=== PATIENT | female | born 1960 | race Caucasian/White ===

== ENCOUNTER 2018-10-10 08:21 | Day surgery (SDC) | payer OTHER ==
[2018-10-10] MEDS ORDERED: EPINEPHRINE/PF 1 MG/ML AMP ONE (09:19)
[2018-10-10] MEDS ORDERED: NS 0.9% VIAL 10 ML ONE (09:19)
[2018-10-10] MEDS ORDERED: DUOVISC 1 KIT OPTH ONE (09:20)
[2018-10-10] MEDS ORDERED: MOXIFLOXACIN HCL 10 DROPS/ML **OR USE OPTH ONE (09:20)
[2018-10-10] MEDS ORDERED: BALANCED SALT IRRIG PLAIN 500 ML BTL IRR ONE (09:20)
[2018-10-10] MEDS: PHENYLEPHRINE 10% OPTH 5ML ONE ×3 (09:40→09:55)
[2018-10-10] MEDS ORDERED: TETRACAINE HCL 0.5% 2ML OPTH ONE (09:40)
[2018-10-10] MEDS ORDERED: BUPIVACAINE 0.25% PF 10 ML VIAL ONE (09:40)
[2018-10-10] MEDS: CYCLOPENTOLATE 1% OPTH 2 ML ONE ×3 (09:40→09:55)
[2018-10-10] MEDS ORDERED: NA CHLORIDE 0.9% 500 ML ONE (09:41)
[2018-10-10] MEDS ORDERED: LIDOCAINE 1% MPF 30 ML VIAL ONE (09:42)
[2018-10-10] MEDS ORDERED: LIDOCAINE 2% MPF 5 ML VIAL ONE (09:44)
[2018-10-10] MEDS ORDERED: PROPOFOL 200 MG/20 ML VIAL IV ONE (10:33)
[2018-10-10] MEDS ORDERED: TRYPAN BLUE 0.5 ML SYR OPTH ONE (10:53)
--- NOTE | 2018-10-10 11:19 | P.BOP ---
Preoperative diagnosis: Nuclear sclerotic and posterior subcapsular cataract OD Postoperative diagnosis: Same Primary procedure: Phacoemulsification with IOL OD Estimated blood loss: None Anesthesia: Local (Subtenon's infusion with anesthesia for cataract surgery) Complications: None Implants: SN60WF +21.5 Transferred to: Other (Day surgery) Condition: Good
--- NOTE | 2018-10-10 22:09 | OP ---
Date of Procedure: 10/10/2018 Surgeon: Genna Quintanilla MD Anesthesiologist: Naeem Leal CRNA and Jose Ramon Vargas MD. Preoperative Diagnoses: Nuclear sclerotic and posterior subcapsular cataract, right eye. Operation Performed: Phacoemulsification with intraocular lens implant, right eye. Anesthesia: Per cataract surgery. Complications: None. Description Of Procedure: In day surgery, the patient was prepped with Betadine and draped. A conju nctival incision was made in the inferior nasal quadrant with Carley scissors. A sub-Tenon block c onsisting of a 1:1 mixture of 2% Xylocaine and 0.25% bupivacaine was placed through the conjunctival incision with a blunt cannula. A Honan balloon was placed over the eye and the patient was transferr ed to the operating room. In the operating room the patient was prepped and draped in the usual sterile fashion for ophthalmic surgery. A lid speculum was placed in the right eye. Two paracentesis sites were made superiorly an d inferiorly in the limbal cornea. Viscoat was placed in the anterior chamber and a crescent blade w as used to make a corneal groove and tunnel, and a keratome was used to enter the anterior chamber. Provisc was placed in the anterior chamber and a 360 degree capsulotomy was performed with a cystitom e. The lens was hydrodissected with BSS and rotated freely. The lens was removed with a stop and ch op technique. 16.55 phaco CDE was used to remove the lens. Residual cortex was removed with the irr igation and aspiration. Provisc was placed in the capsular bag. An SN60WF +21.5 lens was placed in the capsular bag without complications. Irrigation and aspiration were used to remove residual visco elastic. The paracentesis sites were hydrated with BSS. The wound and paracentesis sites were inspe cted and found to be watertight. Vigamox 0.07 cc was placed intracamerally at the end of the procedu re. The eye was irrigated with balanced salt solution. The eye was patched with a soft cotton patch and Umro metal shield. The patient was returned to day surgery in good condition. Comments: Extra Viscoat was used. There is a slight abrasion to the lateral canthal area with the d rape scissors. Discharge Instructions: Ms. Medina is discharged to home in good condition and is to follow up with Dr. Quintanilla in the morning. KHADAR/JAMES Voice ID: [id number] Report ID: [id number]
== END 2018-10-10 11:46 | disposition home or self-care (01) ==
LOC: OR 08:21
PROVIDERS: ATTEND Ophthalmology Retina Specialist
PROC: 08RJ3JZ Replacement of Right Lens with Synthetic Substitute, Percutaneous Approach (ICD-10-PCS; principal; 2018-10-10 10:00)
DX: H25.11 Age-related nuclear cataract, right eye (principal); H25.041 Posterior subcapsular polar age-related cataract, right eye; E11.9 Type 2 diabetes mellitus without complications; I10 Essential (primary) hypertension; Z79.82 Long term (current) use of aspirin; Z88.0 Allergy status to penicillin; Z91.048 Other nonmedicinal substance allergy status; Z83.518 Family history of other specified eye disorder; Z83.3 Family history of diabetes mellitus; Z82.49 Family history of ischemic heart disease and other diseases of the circulatory system
CPT/HCPCS: 82962; J0171; J2704

== ENCOUNTER 2022-08-20 09:46 | Emergency (ER) | payer BC ==
--- OUTSIDE RECORDS SUMMARY | 2022-08-20 09:49 | XMS REPORT | Continuity of Care Document ---
:1960 Author Organization [facility] t Address [address] [place] [address] Care Team Providers Name Role Phone Karla Mir Primary Care Physician UNKNOWN, ATTENDING Attending Clinician Unavailable MARIO FOOTE Attending Clinician Unavailable Therapy, Pcp Covid Infusion Attending Clinician Unavailable Mario Foote MD Attending Clinician Braden RNFrancisca Attending Clinician Unavailable Only, Ang Db Test Attending Clinician Unavailable EbLawrence Jennings Attending Clinician LAWRENCE SANTA Attending Clinician Unavailable Doctor Unassigned, [place] Attending Clinician Unavailable Payers Payer Name Policy Type Policy Number Effective Date Expiration Date Joellen larsen [facility] [id number] 2019 00:00:00 [employer] II [id number] 2017 00:00:00 Problems Condition Condition Condition Status Onset Resolution Last Treating Co mments Source Name Details Category Date Date Treatment Clinician Date Essential Essential Disease Active Uni vers hypertensi hypertensi 8-12 it y [place], [place] 00 [place] Type 2 Type 2 Disease Active Univers diabetes diabetes 8-12 ity of mellitus mellitus 00:00: [place] without without 00 Medical complicati complicati Br anch on, on, without without long-term long-term current current use of use of insulin insulin Allergies, Adverse Reactions, Alerts Allergy Allergy Status Severity Reaction(s) Onset Inactive Treating Comm ents Source Name Type Date Date Clinician PENICILL Drug Active Rash 2013-07 Univers INS Class 0-03 ity of 00:00: [place] 00 Medical Branch Penicill Propensi Active Swelling 2013-07 Univ ers ins ty to 0-03 ity of adverse 00:00: [place] reaction 00 Medical s Branch Social History Social Habit Start Date Stop Date Quantity Comments Source Exposure to Yes University of SARS-CoV-[address] [facility] (event) [place] Alcohol intake 2018-02-13 2018-02-13 University of 00:00:00 00:00:00 [facility] [place] [facility] Tobacco use and 2014-04-06 2014-04-06 Never used Universit y of exposure 00:00:00 00:00:00 [facility] [place] [facility] Tobacco Comment 2014-04-06 2014-04-06 quit 20 years Univer sity of 00:00:00 00:00:00 ago. [facility] [place] [facility] Sex Assigned At [birth year] Universit y of 00:00:00 00:00:00 [facility] [place] [facility] Smoking Status Start Date Stop Date Source Former smoker 2014-04-06 00:00:00 2014-04-06 00:00:00 Universi ty of [facility] [place] [facility] Medications Ordered Filled Start Stop Current Ordering Indication Dosage Frequency Signature Comments Components Source Medication Medication Date Date Medication? Clinician (SIG) Name Name casirivimab 2020-07- No [id number] 1200mg Univers -imdevimab 04-05 ity of (REGEN-COV 15:30: 14:15 [place] (EUA)) 00 :00 Medical injection Branch 1,200 mg casirivimab 2020-07- No [id number] 1200mg 1,200 mg, Univers -imdevimab 04-05 Subcutaneo it y of (REGEN-COV 15:30: 14:15 [place], ONCE, [place] (EUA[place] 00 :00 1 dose, On Medical injection Sat Branch 1,200 mg 04/05/21 at 1030, Routine cephALEXin Yes [id number] 1 tab 2x/d Univers 500 mg 8-12 ity of tablet 00:00: [place] 00 Medical Branch metFORMIN 2013-07 Yes 1000mg Take 1,000 Univers (GLUCOPHAGE 0-03 mg by ity of ) 1,000 mg 13:08: mouth 2 [place] tablet 11 (two) Medical times [place] daily with meals. levothyroxi 2013-07 Yes 75ug Take 75 Uni vers ne 0-03 mcg by ity of (SYNTHROID) 13:08: mouth [place] 75 mcg 10 every Medical tablet morning. Branch atenolol-ch 2013-07 Yes 1{tbl} Take 1 Tab Univers lorthalidon 0-03 by mouth ity of e 13:08: daily. [place] (TENORETIC) 10 Medical 50-25 mg Branch per tablet losartan 2013-07 Yes 50mg Take 50 mg Uni vers (COZAAR) 50 0-03 by mouth ity of mg tablet 13:08: daily. [address] triamcinolo 2013-07 Yes [id number] Apply to [facility] [place] [facility] ne 0-03 area(s) 2 ity of acetonide 00:00: (two) [place] (TRIDERM) 00 times Medical 0.1 % cream daily. Branch Vital Signs Vital Name Observation Time Observation Value Comments Source Systolic blood 2021-04-05 14:40:00 98 mm[Hg] Univer sity of pressure [facility] [place] [facility] Diastolic blood 2021-04-05 14:40:00 62 mm[Hg] Unive rsity of [facility] Heart rate 2021-04-05 14:40:00 61 /min [facility] Body temperature 2021-04-05 14:40:00 36.33 Angela [facility] saturation in 2021-04-05 14:40:00 94 /min room air [facility] blood by [facility] Pulse oximetry [place] Body height 2021-04-05 14:04:00 160 cm [facility] Body weight 2021-04-05 14:04:00 95.255 kg [facility] BMI 2021-04-05 14:04:00 37.20 kg/m2 [facility] Procedures This patient has no known procedures. Encounters Start End Encounter Admission Attending Care Care Encounter Source Date/Time Date/Time Type Type Clinicians Facility Department ID 2021-04-11 2021-04-11 Outpatient R UNKNOWN, [facility] [id number] [facility] [place] [facility] 10:15:00 10:15:00 ATTENDING itgabriela [facility] 2021-04-05 2021-04-05 Outpatient R RAMON [facility] [id number] Univers 10:00:00 10:00:00 MARIO burrell [facility] 2021-04-05 2021-04-05 Nurse Therapy, Pcp Covid Infusion [facility] [id number] Univers 08:56:13 09:56:13 Visit FooteMario saldivar A PRIMARY [id number] ity of [id number] [id number] [facility] 042 [place] 2021-04-02 2021-04-02 Telephone JED Feliciano [id number] Univers 00:00:00 00:00:00 Francisca PALMA [id number] it y of HOSPITAL [id number] [place] [id number] [facility] 019 [place] 2021-04-01 2021-04-01 Laboratory Only, Ang Db Test [facility] 1.2.8 [id number] [id number] Univers 13:30:59 13:45:17 Only [facility] [id number] ity of [place] [id number] [place] as Saroj?Blea [id number] [address] Medical Office Building 2021-04-01 2021-04-01 Outpatient R KEN [facility] [id number] Univers 13:15:00 13:15:00 LAWRENCE burrell [facility] 2021-04-01 2021-04-01 Letter Doctor JED [id number] Univers 00:00:00 00:00:00 (Out) Unassigned, LOUIE [id number] ity of [place] HOSPITAL [id number] [place] as [phone] [facility] 044 [place] 2021-04-01 2021-04-01 Orders Doctor ADKINS [id number] Univers 00:00:00 00:00:00 Only UnassignedLOUIE [id number] ity of [place]ja HOSPITAL [id number] [place] as [id number] [facility] 009 Branch Results This patient has no known results.
--- NOTE | 2022-08-20 10:56 | RAD REPORT ---
EXAM DESCRIPTION: RAD - Knee Left 3 View - 08/20/2022 10:34 am CLINICAL HISTORY: knee pain COMPARISON: No comparisons FINDINGS: Mild medial compartment space narrowing. No fracture, dislocation or joint effusion.
--- NOTE | 2022-08-20 11:22 | ER ---
Nurse's Notes [facility] Name: Kristin Medina Age: 62 yrs Sex: Female : 1960 Arrival Date: 08/20/2022 Time: 09:48 Bed IW4 Private MD: Hudson Fernandez V Diagnosis: Knee Pain;Cellulitis of the Left Lower Extremity Presentation: 08/20 10:07 Chief complaint: Patient states: Woke 2 days ago with left knee swelling and pain, jl7 denies trauma, Dr. Fernandez sent for eval. Coronavirus screen: At this time, the client does not indicate any symptoms associated with coronavirus-19. Ebola Screen: No symptoms or risks identified at this time. Initial Sepsis Screen: Does the patient meet any 2 criteria? No. Patient's initial sepsis screen is negative. Does the patient have a suspected source of infection? No. Patient's initial sepsis screen is negative. Risk Assessment: Do you want to hurt yourself or someone else? Patient reports no desire to harm self or others. Onset of symptoms was August 18, 2022. 10:07 Method Of Arrival: Ambulatory jl7 10:07 Acuity: CANDELARIA 3 jl7 Triage Assessment: 10:08 General: Appears in no apparent distress. uncomfortable, Behavior is calm, cooperative, jl7 appropriate for age. Pain: Complains of pain in left knee Pain currently is 5 out of 10 on a pain scale. Historical: - Allergies: 10:08 PENICILLINS; jl7 - Home Meds: 10:08 levothyroxine oral [Active]; metformin Oral [Active]; Ozempic subcutaneous [Active]; jl7 Atenolol Oral [Active]; losartan oral [Active]; atorvastatin oral [Active]; - PMHx: 10:08 Anxiety; Hypothyroidism; Hypertensive disorder; Diabetes mellitus; jl7 - PSHx: 10:08 section; Cholecystectomy; jl7 - Immunization history:: Client reports having NOT received the Covid vaccine. - Social history:: Smoking status: Patient denies any tobacco usage or history of. Assessment: 10:17 Reassessment: PRAMOD Washburn in triage assessing pt. jl7 Vital Signs: 10:07 BP 114 / 82; Pulse 92; Resp 17; Temp 98.7; Pulse Ox 95% on R/A; Weight 90.26 kg; Height jl7 5 ft. 3 in. (160.02 cm); Pain 5/10; 10:07 Body Mass Index 35.25 (90.26 kg, 160.02 cm) jl7 ED Course: 09:48 Patient arrived in ED. rg4 09:49 Hudson Fernandez MD is Private Physician. rg4 10:08 Triage completed. jl7 10:08 Arm band placed on right wrist. Patient placed in waiting room, Patient notified of jl7 wait time. 10:21 Wu Dang PA is PHCP. [facility] 10:21 Karla Foote MD is Attending Physician. jmm 10:35 Knee Left 3 View XRAY In Process Unspecified. EDMS 11:21 Reggie Fritz MD is Referral Physician. [facility] 11:30 Zhanna Toribio, ASHLEY is Primary Nurse. jl7 11:30 Patient has correct armband on for positive identification. jl7 11:30 No provider procedures requiring assistance completed. Patient did not have IV access jl7 during this emergency room visit. Administered Medications: No medications were administered Outcome: 11:21 Discharge ordered by . jmm 11:30 Discharged to home ambulatory. jl7 11:30 Condition: stable 11:30 Discharge instructions given to patient, Instructed on discharge instructions, follow up and referral plans. medication usage, Demonstrated understanding of instructions, follow-up care, medications, Prescriptions given X 2. 11:31 Patient left the ED. jl7 Signatures: Dispatcher [employer] EDMS Wu Dang PA PA jmm Garcia, Rubi rg4 Zhanna Toribio, RN RN jl7
--- NOTE | 2022-08-20 11:22 | EDPHYS ---
Physician Documentation [facility] Name: Kristin Medina Age: 62 yrs Sex: Female : 1960 Arrival Date: 08/20/2022 Time: 09:48 Bed IW4 Private MD: Hudson Fernandez V ED Physician Karla Foote HPI: 08/20 10:21 This 62 yrs old Female presents to ER via Ambulatory with complaints of Sent By [facility]- [facility] Sivan for Septic Joint. 10:21 The patient presents with pain. Onset: The symptoms/episode began/occurred gradually, 2 jmm day(s) ago. This is a 62-year-old female with history of hypothyroidism, hypertension, diabetes mellitus the presents emerged part with complaints of left knee pain and swelling beginning approximately 2 days ago. Patient denies any known injury. States she helped relieve the swelling with ice. Denies fever. Denies any type of penetrating trauma. Historical: - Allergies: 10:08 PENICILLINS; jl7 - Home Meds: 10:08 levothyroxine oral [Active]; metformin Oral [Active]; Ozempic subcutaneous [Active]; jl7 Atenolol Oral [Active]; losartan oral [Active]; atorvastatin oral [Active]; - PMHx: 10:08 Anxiety; Hypothyroidism; Hypertensive disorder; Diabetes mellitus; jl7 - PSHx: 10:08 section; Cholecystectomy; jl7 - Immunization history:: Client reports having NOT received the Covid vaccine. - Social history:: Smoking status: Patient denies any tobacco usage or history of. ROS: 10:21 Constitutional: Negative for fever, chills, and weight loss, Cardiovascular: Negative jmm for chest pain, palpitations, and edema, Respiratory: Negative for shortness of breath, cough, wheezing, and pleuritic chest pain. 10:21 MS/extremity: Positive for pain, swelling. 10:21 All other systems are negative. Exam: 10:21 Constitutional: This is a well developed, well nourished patient who is awake, alert, jmm and in no acute distress. Head/Face: atraumatic. Eyes: EOMI, no conjunctival erythema appreciated ENT: Moist Mucus Membranes Neck: Trachea midline, Supple Chest/axilla: Normal chest wall appearance and motion. Cardiovascular: Regular rate and rhythm. No edema appreciated Respiratory: Normal respirations, no respiratory distress appreciated Abdomen/GI: Non distended Back: Normal ROM 10:21 Musculoskeletal/extremity: Full range of motion appreciated to the left knee.. 10:21 Skin: Erythema noted to the left anterior knee, slightly indurated, focally tender to palpation. 10:21 Neuro: Orientation: is normal, Mentation: is normal, Memory: is normal. 10:21 Psych: Behavior/mood is pleasant, cooperative. Vital Signs: 10:07 BP 114 / 82; Pulse 92; Resp 17; Temp 98.7; Pulse Ox 95% on R/A; Weight 90.26 kg; Height jl7 5 ft. 3 in. (160.02 cm); Pain 5/10; 10:07 Body Mass Index 35.25 (90.26 kg, 160.02 cm) jl7 MDM: 10:21 Patient medically screened. [facility] 11:16 Differential diagnosis: Cellulitis, septic joint, insect bite. Data reviewed: vital [facility] signs, nurses notes. Independent interpretation of the following test(s) in the Emergency Department X-Ray: My interpretation is No fracture appreciated. Care significantly affected by the following chronic conditions: Diabetes. Counseling: I had a detailed discussion with the patient and/or guardian regarding: the historical points, exam findings, and any diagnostic results supporting the discharge/admit diagnosis, radiology results, the need for outpatient follow up, to return to the emergency department if symptoms worsen or persist or if there are any questions or concerns that arise at home. Refusal of service: The patient/guardian displays adequate decision making capability and despite a detailed discussion of alternatives, benefits, risks, and consequences refuses: knee tap. ED course: There is mild erythema swelling to the anterior knee. most likely cellulitis. Patient does have full range of motion, is afebrile, there is no penetrating injury. Patient was given strict return precautions if swelling does increase that she would need to come in for IV antibiotics and had a possible tap of the knee joint. Patient understood and agrees plan of care.. 08/20 10:21 Order name: Knee Left 3 View XRAY; Complete Time: 10:57 [facility] Administered Medications: No medications were administered Disposition Summary: 08/20/22 11:21 Discharge Ordered Location: Home [facility] Condition: Stable [facility] Diagnosis - Knee Pain jmm - Cellulitis of the Left Lower Extremity [facility] Followup: [facility] - With: Reggie Fritz MD - When: 2 - 3 days - Reason: Recheck today's complaints, Continuance of care, Re-evaluation by your physician Discharge Instructions: - Discharge Summary Sheet [facility] - Cellulitis, Adult jm - Acute Knee Pain, Adult [facility] Forms: - Medication Reconciliation Form [facility] - Thank You Letter [facility] - Antibiotic Education [facility] - Prescription Opioid Use [facility] Prescriptions: - Doxycycline Hyclate 100 mg Oral Tablet - take 1 tablet by ORAL route every 12 hours; 20 tablet; Refills: 0, Product [facility] Selection Permitted - Bactrim DS 800-160 mg Oral Tablet - take 1 tablet by ORAL route every 12 hours for 7 days; 14 tablet; Refills: 0, [facility] Product Selection Permitted Signatures: Dispatcher [employer] Wu Marie PA PA jmm Leal, Jahala, RN RN jl7
[2022-08-20 12:04] VITALS: TEMP 98.7
[2022-08-20 12:07] VITALS: BP 115/103; O2SAT 98
== END 2022-08-20 11:31 | disposition home or self-care (01) ==
LOC: SUPCPDRO 09:46 → ER 09:46
DX: L03.116 Cellulitis of left lower limb (principal); E11.9 Type 2 diabetes mellitus without complications; E03.9 Hypothyroidism, unspecified; I10 Essential (primary) hypertension; Z88.0 Allergy status to penicillin
CPT/HCPCS: 99283

== ENCOUNTER 2022-08-29 14:16 | Emergency (ER) | payer BC ==
--- OUTSIDE RECORDS SUMMARY | 2022-08-29 14:19 | XMS REPORT | Continuity of Care Document ---
:1960 Author Organization [facility] t Address [address] [place] [address] Care Team Providers Name Role Phone Karla Mir Primary Care Physician UNKNOWN, ATTENDING Attending Clinician Unavailable MARIO FOOTE Attending Clinician Unavailable Therapy, Pcp Covid Infusion Attending Clinician Unavailable Mario Foote MD Attending Clinician Braden RNFrancisca Attending Clinician Unavailable Only, Ang Db Test Attending Clinician Unavailable EbLawrence Jennings Attending Clinician LAWRENCE SANTA Attending Clinician Unavailable Doctor Unassigned, [place] Attending Clinician Unavailable Payers Payer Name Policy Type Policy Number Effective Date Expiration Date Joellen larsen [facility] [id number] 2019 00:00:00 CIGNA II [id number] 2017 00:00:00 Problems Condition Condition Condition Status [...] Source Exposure to Yes University of SARS-CoV-2 [facility] (event) [place] Alcohol intake 2018-02-13 2018-02-13 University of 00:00:00 00:00:00 [facility] Tobacco use and 2014-04-06 2014-04-06 Never used Universit y of exposure 00:00:00 00:00:00 [facility] Tobacco Comment 2014-04-06 2014-04-06 quit 20 years Univer sity of 00:00:00 00:00:00 ago. [facility] Sex Ass[birth year] At [birth year] Universit y of 00:00:00 00:00:00 [facility] Smoking Status Start Date Stop Date Source Former smoker 2014-04-06 00:00:00 2014-04-06 00:00:00 Universi ty of [facility] Medications Ordered Filled Start Stop Current Ordering Indication Dosage Frequency Signature Comments Components Source Medication Medication Date Date Medication? Clinician (SIG) Name Name casirivimab 2020-07- No [id number] 1200mg Univers -imdevimab 04-05 ity of (REGEN-COV 15:30: 14:15 [place] (EUA)) 00 :00 Medical injection Branch 1,200 mg casirivimab 2020-07- No [id number] 1200mg 1,200 mg, Univers -imdevimab 04-05 Subcutaneo it y of (REGEN-COV 15:30: 14:15 [place], [place]CE, [place] ([place] 00 :00 1 dose, On Medical injection Sat Branch 1,200 mg 04/05/21 at 1030, Routine cephALEXin Yes [id number] 1 tab 2x/d Univers 500 mg 8-12 ity of tablet 00:00: [place] 00 Medical Branch metFORMIN 2013-07 Yes 1000mg Take 1,000 Univers (GLUCOPHAGE 0-03 mg by ity of ) 1,000 mg 13:08: mouth 2 [place] tablet 11 (two) Medical times [place] daily with meals. levothyroxi 2013-07 Yes 75ug Take 75 Uni vers ne 0-03 mcg by ity of (SYNTHROID) 13:08: mouth [place] 75 mcg 10 every Medical tablet morning. Branch atenolol-ch 2013-07 Yes 1{tbl} Take 1 Tab Univers lorthalidon 0-03 by mouth ity of e 13:08: daily. [place] (TENORETIC) 10 Medical 50-25 mg Branch per tablet losartan 2013-07 Yes 50mg Take 50 mg Uni vers (COZAAR) 50 0-03 by mouth ity of mg tablet 13:08: daily. [address] triamcinolo 2013-07 Yes [id number] Apply to [facility] ne 0-03 area(s) 2 ity of acetonide 00:00: (two) [place] (TRIDERM) 00 times Medical 0.1 % cream daily. Branch Vital Signs Vital Name Observation Time Observation Value Comments Source Systolic blood 2021-04-05 14:40:00 98 mm[Hg] Univer sity of pressure [facility] Diastolic blood 2021-04-05 14:40:00 62 mm[Hg] Unive rsity of [facility] Heart rate 2021-04-05 14:40:00 61 /min [facility] Body temperature 2021-04-05 14:40:[address] [facility] Oxygen saturation in 2021-04-05 14:40:00 94 /min room air [facility] blood by [facility] Pulse oximetry [place] Body height 2021-04-05 14:04:00 160 cm [facility] Body weight 2021-04-05 14:04:00 95.255 kg [facility] BMI 2021-04-05 14:04:00 37.20 kg/m2 [facility] Procedures This patient has no known procedures. Encounters Start End Encounter Admission Attending Care Care Encounter Source Date/Time Date/Time Type Type Clinicians Facility Department ID 2021-04-11 2021-04-11 Outpatient R UNKNOWN, [facility] [id number] [facility] 10:15:00 10:15:00 ATTENDING itgabriela [facility] 2021-04-05 2021-04-05 Outpatient R RAMON [facility] [id number] Univers 10:00:00 10:00:00 MARIO burrell [facility] 2021-04-05 2021-04-05 Nurse Therapy, Pcp Covid Infusion [facility] [id number] Univers 08:56:13 09:56:13 Visit FooteMario saldivar A PRIMARY [id number] ity of [place] [id number] [id number] [facility] 042 [place] 2021-04-02 2021-04-02 Telephone JED Feliciano [id number] 1918 Univers 00:00:00 00:00:00 Francisca [place] [id number] it y of HOSPITAL [id number] [place] as [phone] [facility] 019 [place] 2021-04-01 2021-04-01 Laboratory Only, Ang Db Test [facility] 1.2.8 [id number] [id number] Univers 13:30:59 13:45:17 Only [employer] [facility] [id number] ity of [place] [id number] [place] as Saroj?Blea [id number] [address] Medical Office Building 2021-04-01 2021-04-01 Outpatient R KEN [facility] [id number] Univers 13:15:00 13:15:00 LAWRENCE burrell [facility] 2021-04-01 2021-04-01 Letter Doctor JED [id number] Univers 00:00:00 00:00:00 (Out) Unassigned, LOUIE [id number] ity of [place] [facility] [id number] [place] as [id number] [facility] 044 [place] 2021-04-01 2021-04-01 Orders Doctor ADKINS [id number] Univers 00:00:00 00:00:00 Only UnassignedLOUIE [id number] ity of [place] [facility] [id number] [place] as [phone] [facility] 009 Branch Results This patient has no known results.
--- NOTE | 2022-08-29 15:17 | EDPHYS ---
Physician Documentation [facility] Name: Kristin Medina Age: 62 yrs Sex: Female : 1960 Arrival Date: 08/29/2022 Time: 14:19 Bed 6 Private MD: Ezio Fernandez ED Physician Arnulfo Samuel HPI: 08/29 15:25 This 62 yrs old Female presents to ER via Ambulatory with complaints of Allergic kb Reaction, Itching. 15:25 The patient presents with itching, rash. Onset: The symptoms/episode began/occurred kb yesterday. Associated signs and symptoms: Pertinent positives: hives, rash. Possible causes: bactrim. At home the patient or guardian has treated the symptoms with Benadryl. Severity of symptoms: At their worst the symptoms were moderate in the emergency department the symptoms are unchanged. The patient has not experienced similar symptoms in the past. The patient has been recently seen by a physician:. Historical: - Allergies: 14:25 PENICILLINS; hb - PMHx: 14:25 Anxiety; diabetes mellitus; Hypertensive disorder; Hypothyroidism; hb - PSHx: 14:25 section; Cholecystectomy; hb ROS: 15:25 Constitutional: Negative for fever, chills, and weight loss. kb 15:25 Skin: Positive for rash, diffusely. 15:25 All other systems are negative. Exam: 15:25 Constitutional: This is a well developed, well nourished patient who is awake, alert, kb and in no acute distress. Head/Face: Normocephalic, atraumatic. ENT: Moist Mucous membranes Cardiovascular: Regular rate and rhythm with a normal S1 and S2. No gallops, murmurs, or rubs. No pulse deficits. Respiratory: Respirations even and unlabored. No increased work of breathing. Talking in full sentences Abdomen/GI: Soft, non-tender. No distention MS/ Extremity: Pulses equal, no cyanosis. Neurovascular intact. Full, normal range of motion. Neuro: Awake and alert, GCS 15, oriented to person, place, time, and situation. Moves all extremities. Normal gait. 15:25 Skin: rash a moderate rash is noted, rash can be described as urticarial, consistent with urticaria. Vital Signs: 14:22 BP 96 / 60; Pulse 96; Resp 18; Temp 98.5; Pulse Ox 100% on R/A; Weight 90.26 kg; Height hb 5 ft. 3 in. (160.02 cm); Pain 0/10; 14:22 Body Mass Index 35.25 (90.26 kg, 160.02 cm) hb MDM: 14:23 Patient medically screened. kb 15:15 Differential diagnosis: anaphylaxis, angioedema, urticaria. Data reviewed: vital signs, kb nurses notes. Counseling: I had a detailed discussion with the patient and/or guardian regarding: the historical points, exam findings, and any diagnostic results supporting the discharge/admit diagnosis, the need for outpatient follow up, a family practitioner, to return to the emergency department if symptoms worsen or persist or if there are any questions or concerns that arise at home. ED course: Patient is a 62-year-old female that started Bactrim recently and broke into hives yesterday. Patient reports itching. Denies shortness of breath. On exam patient has urticaria diffusely. Educated to stop Bactrim. Treatment provided in ED and prescriptions for prednisone and Pepcid given for home. Patient educated on return precautions. Verbal understanding received.. 08/29 14:26 Order name: IV Start; Complete Time: 15:16 kb Administered Medications: 15:35 Drug: SOLU-Medrol (methylPrednisoLONE) 125 mg Route: IVP; Site: right antecubital; iw 15:40 Follow up: Response: No adverse reaction iw 15:35 Drug: Benadryl (diphenhydrAMINE) 12.5 mg Route: IVP; Site: right antecubital; iw 15:40 Follow up: Response: No adverse reaction iw 15:35 Drug: Pepcid (famotidine) 20 mg Route: IVP; Site: right antecubital; iw 15:40 Follow up: Response: No adverse reaction iw Disposition Summary: 08/29/22 15:16 Discharge Ordered Location: Home kb Condition: Stable kb Diagnosis - Urticaria, unspecified kb Followup: kb - With: Emergency Department - When: As needed - Reason: Worsening of condition Followup: kb - With: Private Physician - When: 2 - 3 days - Reason: Recheck today's complaints, Continuance of care, Re-evaluation by your physician Discharge Instructions: - Discharge Summary Sheet kb - Hives, [id number] kb Forms: - Medication Reconciliation Form kb - Thank You Letter kb - Antibiotic Education kb - Prescription Opioid Use kb Prescriptions: - Pepcid 20 mg Oral Tablet - take 1 tablet by ORAL route every 12 hours for 5 days; 10 tablet; Refills: 0, kb Product Selection Permitted - Prednisone 20 mg Oral Tablet - take 1 tablet by ORAL route once daily for 5 days; 5 tablet; Refills: 0, kb Product Selection Permitted Signatures: Delmy Roman FNP-C FNP-Ckb Williams, Irene, RN RN iw Ashley Borrego RN RN
--- NOTE | 2022-08-29 15:17 | ER ---
Nurse's Notes [facility] Name: Kristin Medina Age: 62 yrs Sex: Female : 1960 Arrival Date: 08/29/2022 Time: 14:19 Bed 6 Private MD: Ezio Fernandez Diagnosis: Urticaria, unspecified Presentation: 08/29 14:22 Chief complaint: Hives all over since yesterday morning, last Benadryl was last night. hb Recently took Bactrim for knee infection. Coronavirus screen: At this time, the client does not indicate any symptoms associated with coronavirus-19. Ebola Screen: No symptoms or risks identified at this time. Initial Sepsis Screen: Does the patient meet any 2 criteria? No. Patient's initial sepsis screen is negative. Does the patient have a suspected source of infection? No. Patient's initial sepsis screen is negative. Risk Assessment: Do you want to hurt yourself or someone else? Patient reports no desire to harm self or others. Onset of symptoms was August 28, 2022. 14:22 Method Of Arrival: Ambulatory hb 14:22 Acuity: CANDELARIA 3 hb Historical: - Allergies: 14:25 PENICILLINS; hb - PMHx: 14:25 Anxiety; diabetes mellitus; Hypertensive disorder; Hypothyroidism; hb - PSHx: 14:25 section; Cholecystectomy; hb Assessment: 15:45 Reassessment: Patient appears in no apparent distress at this time. Patient and/or iw family updated on plan of care and expected duration. Pain level reassessed. Patient is alert, oriented x 3, equal unlabored respirations, skin warm/dry/pink. Vital Signs: 14:22 BP 96 / 60; Pulse 96; Resp 18; Temp 98.5; Pulse Ox 100% on R/A; Weight 90.26 kg; Height hb 5 ft. 3 in. (160.02 cm); Pain 0/10; 14:22 Body Mass Index 35.25 (90.26 kg, 160.02 cm) hb ED Course: 14:19 Patient arrived in ED. mr 14:19 Ezio Fernandez is Private Physician. mr 14:23 Del[facility]C [facility] kb 14:23 Arnulfo Samuel MD is Attending Physician. kb 14:25 Triage completed. hb 14:25 Arm band placed on. hb 14:57 Maedlaine Garcia, RN is Primary Nurse. iw 15:15 Inserted saline lock: 20 gauge in right antecubital area, using aseptic technique. iw 15:45 No provider procedures requiring assistance completed. IV discontinued, intact, iw bleeding controlled, No redness/swelling at site. Pressure dressing applied. Administered Medications: 15:35 Drug: SOLU-Medrol (methylPrednisoLONE) 125 mg Route: IVP; Site: right antecubital; iw 15:40 Follow up: Response: No adverse reaction iw 15:35 Drug: Benadryl (diphenhydrAMINE) 12.5 mg Route: IVP; Site: right antecubital; iw 15:40 Follow up: Response: No adverse reaction iw 15:35 Drug: Pepcid (famotidine) 20 mg Route: IVP; Site: right antecubital; iw 15:40 Follow up: Response: No adverse reaction iw Outcome: 15:16 Discharge ordered by . kb 15:46 Discharged to home ambulatory. iw 15:46 Condition: good 15:46 Discharge instructions given to patient, Instructed on discharge instructions, follow up and referral plans. medication usage, Demonstrated understanding of instructions, follow-up care, medications, Prescriptions given X 2. 15:46 Patient left the ED. iw Signatures: Delmy Roman, PIYUSH KELLY-Laura Rivas mr Madelaine Garcia, RN RN iw Ashley Borrego, ASHLEY RN hb
[2022-08-29] MEDS ORDERED: DIPHENHYDRAMINE 50 MG/ML VIAL ONE (15:32)
[2022-08-29] MEDS ORDERED: METHYLPREDNISOLONE 125 MG INJ ONE (15:32)
[2022-08-29] MEDS ORDERED: FAMOTIDINE 20 MG/2 ML VIAL IV ONE (15:32)
[2022-08-29 15:59] VITALS: BP 143/86; TEMP 97.7; O2SAT 99
== END 2022-08-29 15:46 | disposition home or self-care (01) ==
LOC: ER 14:16
DX: L50.9 Urticaria, unspecified (principal); Z88.0 Allergy status to penicillin
CPT/HCPCS: 96375; 96374; 99283; J1200; J2930

== ENCOUNTER 2022-08-31 05:49 | Emergency (ER) | payer BC ==
--- OUTSIDE RECORDS SUMMARY | 2022-08-31 05:52 | XMS REPORT | Continuity of Care Document ---
:1960 Author Organization [facility] t Address [address] [place] [address] Care Team Providers Name Role Phone Karla Mir Primary Care Physician UNKNOWN, ATTENDING Attending Clinician Unavailable MARIO FOOTE Attending Clinician Unavailable Therapy, Pcp Covid Infusion Attending Clinician Unavailable Mario Foote MD Attending Clinician Braden RNFrancisca Attending Clinician Unavailable Only, Ang Db Test Attending Clinician Unavailable EbLawrence Jennings Attending Clinician LAWRENCE SANTA Attending Clinician Unavailable Doctor Unassigned, [place] Attending Clinician Unavailable Payers Payer Name Policy Type Policy Number Effective Date Expiration Date Joellen larsen [facility] [id number] 2019 00:00:00 CIGNA II [id number] 2017 00:00:00 Problems Condition Condition Condition Status [...] Source Exposure to Yes University of SARS-CoV-2 [facility] (event) [place] Alcohol intake 2018-02-13 2018-02-13 University of 00:00:00 00:00:00 [facility] Tobacco use and 2014-04-06 2014-04-06 Never used Universit y of exposure 00:00:00 00:00:00 [facility] Tobacco Comment 2014-04-06 2014-04-06 quit 20 years Univer sity of 00:00:00 00:00:00 ago. [facility] Sex Assigned At [birth year] Universit y of 00:00:00 00:00:00 [facility] Smoking Status Start Date Stop Date Source Former smoker 2014-04-06 00:00:00 2014-04-06 00:00:00 Universi ty of [facility] Medications Ordered Filled Start Stop Current Ordering Indication Dosage Frequency Signature Comments Components Source Medication Medication Date Date Medication? Clinician (SIG) Name Name casirivimab 2020-07- No [id number] 1200mg Univers -imdevimab 04-05 ity of (REGEN-COV 15:30: 14:15 [place] (EUA)) 00 :00 Medical injection Branch 1,200 mg casirivimab 2020-07- No [id number] 1200mg 1,200 mg, Univers -imdevimab 04-05 Subcutaneo it y of (REGEN-COV 15:30: 14:15 [place], ONCE, [place] ([place] 00 :00 1 dose, On Medical injection Sat Branch 1,200 mg 04/05/21 at 1030, Routine cephALEXin Yes [id number] 1 tab 2x/d Univers 500 mg 8-12 ity of tablet 00:00: [place] 00 Medical Branch metFORMIN 2013-07 Yes 1000mg Take 1,000 Univers (GLUCOPHAGE 0-03 mg by ity of ) 1,000 mg 13:08: mouth 2 [place] tablet 11 (two) Medical times [place] daily with meals. levothyroxi 2013-07 Yes 75ug Take 75 Uni vers ne 0-03 mcg by ity of (SYNTHROID) 13:08: mouth [place] 75 mcg 10 every Medical tablet morning. Branch atenolol-ch 2013-07 Yes 1{tbl} Take 1 Tab Univers lorthalidon 0-03 by mouth ity of e 13:08: daily. [place] (TENORETIC) 10 Medical 50-25 mg Branch per tablet losartan 2013-07 Yes 50mg Take 50 mg Uni vers (COZAAR) 50 0-03 by mouth ity of mg tablet 13:08: daily. [address] triamcinolo 2013-07 Yes [id number] Apply to [facility] ne 0-03 area(s) 2 ity of acetonide 00:00: (two) [place] (TRIDERM) 00 times Medical 0.1 % cream daily. Branch Vital Signs Vital Name Observation Time Observation Value Comments Source Systolic blood 2021-04-05 14:40:00 98 mm[Hg] Univer sity of pressure [facility] Diastolic blood 2021-04-05 14:40:00 62 mm[Hg] Unive rsity of [facility] Heart rate 2021-04-05 14:40:00 61 /min [facility] Body temperature 2021-04-05 14:40:00 36.33 Angela [facility] Oxygen saturation in 2021-04-05 14:40:00 94 /min room air [facility] blood by [facility] Pulse oximetry [place] Body height 2021-04-05 14:04:00 160 cm [facility] Body weight 2021-04-05 14:04:00 95.255 kg [facility] BMI 2021-04-05 14:04:00 37.20 kg/m2 [facility] Procedures This patient has no known procedures. Encounters Start End Encounter Admission Attending Care Care Encounter Source Date/Time Date/Time Type Type Clinicians Facility Department ID 2021-04-11 2021-04-11 Outpatient R UNKNOWN, [facility] [id number] [facility] 10:15:00 10:15:00 ATTENDING itgabriela [facility] 2021-04-05 2021-04-05 Outpatient R RAMON [facility] [id number] Univers 10:00:00 10:00:00 MARIO burrell [facility] 2021-04-05 2021-04-05 Nurse Therapy, Pcp Covid Infusion [facility] [id number] Univers 08:56:13 09:56:13 Visit FooteMario saldivar A PRIMARY [id number] ity of C[place] [id number] [id number] [facility] 042 [place] 2021-04-02 2021-04-02 Telephone JED Feliciano [id number] 1918 Univers 00:00:00 00:00:00 Francisca PALMA [id number] it y of HOSPITAL [id number] [place] as [id number] [facility] 019 [place] 2021-04-01 2021-04-01 Laboratory Only, Ang Db Test [facility] 1.2.8 40.114 [id number] Univers 13:30:59 13:45:17 Only [employer] [facility] [id number] ity of [place] [id number] [place] as Saroj?Blea [id number] [address] Medical Office Building 2021-04-01 2021-04-01 Outpatient R KEN [facility] [id number] Univers 13:15:00 13:15:00 LAWRENCE burrell [facility] 2021-04-01 2021-04-01 Letter Doctor JED [id number] Univers 00:00:00 00:00:00 (Out) Unassigned, LOUIE [id number] ity of [place] [facility] [id number] [place] as [id number] [facility] 044 [place] 2021-04-01 2021-04-01 Orders Doctor ADKINS [id number] Univers 00:00:00 00:00:00 Only UnassignedLOUIE [id number] ity of [place] [facility] [id number] [place] as [phone] [facility] 009 Branch Results This patient has no known results.
[2022-08-31] MEDS ORDERED: ACETAMINOPHEN 325 MG TABLET ONE (06:34)
[2022-08-31] MEDS ORDERED: DIPHENHYDRAMINE 50 MG/ML VIAL ONE (06:34)
[2022-08-31] MEDS ORDERED: NA CHLORIDE 0.9% 500 ML ONE (06:34)
[2022-08-31] MEDS ORDERED: METHYLPREDNISOLONE 125 MG INJ ONE (06:34)
--- NOTE | 2022-08-31 07:33 | ER ---
Nurse's Notes [facility] Name: Kristin Medina Age: 62 yrs Sex: Female : 1960 Arrival Date: 08/31/2022 Time: 05:50 Bed 8 Private MD: Diagnosis: Allergic urticaria;Facial swelling Presentation: 08/31 06:03 Chief complaint: Patient states: I woke up today with my eyes, face, and lips swollen. aa9 I have a headache now, I am itchy all over my head. I was here Wednesday because I was covered in hives head to toe. Coronavirus screen: Vaccine status: Patient reports being unvaccinated. Ebola Screen: No symptoms or risks identified at this time. Initial Sepsis Screen: Does the patient meet any 2 criteria? No. Patient's initial sepsis screen is negative. Does the patient have a suspected source of infection? No. Patient's initial sepsis screen is negative. Risk Assessment: Do you want to hurt yourself or someone else? Patient reports no desire to harm self or others. Onset of symptoms was August 31, 2022. 06:03 Method Of Arrival: Ambulatory aa9 06:03 Acuity: CANDELARIA 3 aa9 Triage Assessment: 06:06 General: Appears uncomfortable, obese, Behavior is cooperative, anxious. Pain: aa9 Complains of pain in headache Pain currently is 5 out of 10 on a pain scale. Neuro: Level of Consciousness is awake, alert, obeys commands, Oriented to person, place, time, situation. Cardiovascular: Patient's skin is warm and dry. Respiratory: Airway is patent Respiratory effort is even, unlabored. GI: No signs and/or symptoms were reported involving the gastrointestinal system. : No signs and/or symptoms were reported regarding the genitourinary system. Derm: Skin is fragile, is thin, Rash noted that is itchy, red, raised, on neck and forehead area. Historical: - Allergies: 06:05 PENICILLINS; aa9 06:05 Bactrim; aa9 - Home Meds: 06:05 Atenolol Oral [Active]; atorvastatin Oral [Active]; levothyroxine oral [Active]; aa9 losartan Oral [Active]; Metformin Oral [Active]; - PMHx: 06:05 Anxiety; diabetes mellitus; Hypertensive disorder; Hypothyroidism; aa9 - PSHx: 06:05 section; Cholecystectomy; Tonsillectomy; hernia sx; aa9 - Immunization history:: Client reports having NOT received the Covid vaccine. - Social history:: Smoking status: Patient denies any tobacco usage or history of. Screenin:07 [facility] ED Fall Risk Assessment (Adult) History of falling in the last 3 months, aa9 including since admission No falls in past 3 months (0 pts) Confusion or Disorientation No (0 pts) Intoxicated or Sedated No (0 pts) Impaired Gait No (0 pts) Mobility Assist Device Used No (0 pt) Altered Elimination No (0 pt) Score/Fall Risk Level 0 - 2 = Low Risk Educated pt \T\ family on fall prevention, incl call for assistance when getting out of bed, Assessed \T\ reinforced patient's understanding of fall precautions. Abuse screen: Denies threats or abuse. Denies injuries from another. Nutritional screening: No deficits noted. Tuberculosis screening: No symptoms or risk factors identified. Assessment: 06:09 Respiratory: Denies shortness of breath. aa9 06:45 Reassessment: Patient appears in no apparent distress at this time. Patient is alert, aa9 oriented x 3, equal unlabored respirations, skin warm/dry/pink. 07:05 General: Appears in no apparent distress. comfortable, Behavior is calm, cooperative, kc6 appropriate for age. Pain: Denies pain. Neuro: Guzmán Agitation-Sedation Scale (RASS): 0 - Alert and Calm Level of Consciousness is awake, alert, obeys commands, Oriented to person, place, time, situation, Appropriate for age Reports headache. Cardiovascular: Capillary refill < 3 seconds. Respiratory: Airway is patent Trachea deviated to right Respiratory effort is even, unlabored, Respiratory pattern is regular, symmetrical, Denies shortness of breath. GI: No signs and/or symptoms were reported involving the gastrointestinal system. : No signs and/or symptoms were reported regarding the genitourinary system. EENT: No signs and/or symptoms were reported regarding the EENT system. Derm: No signs and/or symptoms reported regarding the dermatologic system. Skin is intact, Skin is pink, warm \T\ dry. Rash noted that is raised. Musculoskeletal: No signs and/or symptoms reported regarding the musculoskeletal system. Circulation, motion, and sensation intact. Capillary refill < 3 seconds, Range of motion: intact in all extremities. Vital Signs: 06:00 BP 121 / 73; Pulse 89; Resp 15 S; Pulse Ox 99% on R/A; aa9 06:03 BP 124 / 65; Pulse 90; Resp 16 S; Temp 98.1(O); Pulse Ox 99% on R/A; Weight 90.26 kg aa9 (R); Height 5 ft. 3 in. (160.02 cm) (R); Pain 5/10; 06:56 BP 128 / 77; Pulse 83; Resp 15 S; Pulse Ox 98% on R/A; aa9 07:05 BP 115 / 58; Pulse 89; Resp 13 S; Pulse Ox 100% on R/A; kc6 06:03 Body Mass Index 35.25 (90.26 kg, 160.02 cm) aa9 ED Course: 05:50 Patient arrived in ED. ag3 06:05 Triage completed. aa9 06:07 Arm band placed on. aa9 06:08 Christine Ruiz, RN is Primary Nurse. aa9 06:08 Patient has correct armband on for positive identification. Placed in gown. Bed in low aa9 position. Side rails up X2. Adult w/ patient. Client placed on continuous cardiac and pulse oximetry monitoring. NIBP monitoring applied. 06:25 Karla Foote MD is Attending Physician. sp3 06:45 Inserted saline lock: 20 gauge in left antecubital area, using aseptic technique. aa9 07:16 Attending Physician role handed off by Karla Foote MD ms3 07:16 Joby Goode DO is Attending Physician. ms3 07:41 No provider procedures requiring assistance completed. IV discontinued, intact, kc6 bleeding controlled, No redness/swelling at site. Pressure dressing applied. Administered Medications: 06:40 Drug: Benadryl (diphenhydrAMINE) 25 mg Route: IVP; Site: left antecubital; aa9 07:00 Follow up: Response: No adverse reaction aa9 06:42 Drug: SOLU-Medrol (methylPrednisoLONE) 125 mg Route: IVP; Site: left antecubital; aa9 07:00 Follow up: Response: No adverse reaction aa9 06:44 Drug: Tylenol 650 mg Route: PO; aa9 06:59 Follow up: Response: No adverse reaction aa9 06:44 Drug: NS 0.9% 500 ml Route: IV; Rate: bolus; Site: left antecubital; aa9 07:22 Follow up: Response: No adverse reaction; IV Status: Completed infusion; IV Intake: kc6 500ml Medication: 07:41 VIS not applicable for this client. kc6 Intake: 07:22 IV: 500ml; Total: 500ml. kc6 Outcome: 07:32 Discharge ordered by . ms3 07:41 Discharged to home ambulatory. kc6 07:41 Condition: stable 07:41 Discharge instructions given to patient, Instructed on discharge instructions, follow up and referral plans. Demonstrated understanding of instructions, follow-up care. 07:41 Patient left the ED. kc6 Signatures: Ashley Martino ag3 Joby Goode DO DO ms3 Karla Foote MD MD sp3 Christine Ruiz RN RN aa9 Ruchi Rae RN RN kc6
--- NOTE | 2022-08-31 07:33 | EDPHYS ---
Physician Documentation [facility] Name: Kristin Medina Age: 62 yrs Sex: Female : 1960 Arrival Date: 08/31/2022 Time: 05:50 Bed 8 Private MD: ED Physician Joby Goode HPI: 08/31 06:44 This 62 yrs old Female presents to ER via Ambulatory with complaints of Facial Swelling sp3 \T\ allergic reaction. 06:44 62-year-old female with history of diabetes, hypertension, recent allergic reaction sp3 seen 2 days ago for presumed allergy to sulfa/Bactrim now presents again for similar repeating symptoms of facial swelling, facial hives, without airway involvement. Patient was on Bactrim for 6 days for insect bite/mild cellulitis after which she developed her symptoms. She states that she had no other new medications, chemicals including detergents soaps skin products or any other substances that she can recall. She states that she might of had problems with sulfur in the past but cannot recall at this time. She was seen 2 days ago and was given routine medications and sent home on prednisone however today her symptoms have recurred. She denies fever, URI symptoms, neck pain, chest pain, shortness of breath, abdominal pain, nausea, vomiting, diarrhea, hives anywhere else on her body except her face or any other symptoms on ROS at this time.. Historical: - Allergies: 06:05 PENICILLINS; aa9 06:05 Bactrim; aa9 - Home Meds: 06:05 Atenolol Oral [Active]; atorvastatin Oral [Active]; levothyroxine oral [Active]; aa9 losartan Oral [Active]; Metformin Oral [Active]; - PMHx: 06:05 Anxiety; diabetes mellitus; Hypertensive disorder; Hypothyroidism; aa9 - PSHx: 06:05 section; Cholecystectomy; Tonsillectomy; hernia sx; aa9 - Immunization history:: Client reports having NOT received the Covid vaccine. - Social history:: Smoking status: Patient denies any tobacco usage or history of. ROS: 06:47 Constitutional: Negative for fever, chills, and weight loss, Eyes: Negative for injury, sp3 pain, redness, and discharge, Neck: Negative for injury, pain, and swelling, Cardiovascular: Negative for chest pain, palpitations, and edema, Respiratory: Negative for shortness of breath, cough, wheezing, and pleuritic chest pain, Abdomen/GI: Negative for abdominal pain, nausea, vomiting, diarrhea, and constipation, Back: Negative for injury and pain, MS/Extremity: Negative for injury and deformity, Neuro: Negative for headache, weakness, numbness, tingling, and seizure, Psych: Negative for depression, anxiety, suicide ideation, homicidal ideation, and hallucinations, Endocrine: Negative for neck swelling, polydipsia, polyuria, polyphagia, and marked weight changes, Hematologic/Lymphatic: Negative for swollen nodes, abnormal bleeding, and unusual bruising. 06:47 All other systems are negative. Exam: 06:47 Constitutional: This is a well developed, well nourished patient who is awake, alert, sp3 and in no acute distress. ENT: Nares patent. No nasal discharge, no septal abnormalities noted. External auditory canals are clear. Oropharynx with no redness, swelling, or masses, exudates, or evidence of obstruction, uvula midline. Mucous membranes moist. Neck: Trachea midline, no thyromegaly or masses palpated, and no cervical lymphadenopathy. Supple, full range of motion without nuchal rigidity, or vertebral point tenderness. No Meningismus. Chest/axilla: Normal chest wall appearance and motion. Nontender with no deformity. No lesions are appreciated. Cardiovascular: Regular rate and rhythm with a normal S1 and S2. No gallops, murmurs, or rubs. Normal PMI, no JVD. No pulse deficits. Respiratory: Lungs have equal breath sounds bilaterally, clear to auscultation and percussion. No rales, rhonchi or wheezes noted. No increased work of breathing, no retractions or nasal flaring. Abdomen/GI: Soft, non-tender, with normal bowel sounds. No distension or tympany. No guarding or rebound. No evidence of tenderness throughout. Back: No spinal tenderness. No costovertebral tenderness. Full range of motion. Skin: Warm, dry with normal turgor. Normal color with no rashes, no lesions, and no evidence of cellulitis. MS/ Extremity: Pulses equal, no cyanosis. Neurovascular intact. Full, normal range of motion. Neuro: Awake and alert, GCS 15, oriented to person, place, time, and situation. Cranial nerves II-XII grossly intact. Motor strength 5/5 in all extremities. Sensory grossly intact. Cerebellar exam normal. Normal gait. Psych: Awake, alert, with orientation to person, place and time. Behavior, mood, and affect are within normal limits. 06:47 Head/face: Several areas of urticaria noted on forehead and right side of her face. Diffuse swelling periorbital and facial noted without lateralization. There is no oropharynx involvement of any sort and patient's airway is fully intact and patient is speaking in full sentences without difficulty. Vital signs are normal with normal pulse oxygenation on room air.. Vital Signs: 06:00 BP 121 / 73; Pulse 89; Resp 15 S; Pulse Ox 99% on R/A; aa9 06:03 BP 124 / 65; Pulse 90; Resp 16 S; Temp 98.1(O); Pulse Ox 99% on R/A; Weight 90.26 kg aa9 (R); Height 5 ft. 3 in. (160.02 cm) (R); Pain 5/10; 06:56 BP 128 / 77; Pulse 83; Resp 15 S; Pulse Ox 98% on R/A; aa9 07:05 BP 115 / 58; Pulse 89; Resp 13 S; Pulse Ox 100% on R/A; kc6 06:03 Body Mass Index 35.25 (90.26 kg, 160.02 cm) aa9 MDM: 06:27 Patient medically screened. sp3 06:48 Data reviewed: vital signs, nurses notes, old medical records. ED course: 62-year-old sp3 female with presumed repeat allergic reaction. Again we do not know exact source of her allergy though working diagnosis is sulfur. Patient cellulitis is improved and she no longer requires antibiotics. She already has prednisone prescription which she just filled and has not started which could represent why her allergic reaction rebounded. Regardless, she will receive Solu-Medrol and Benadryl IV in the ED and once improved will likely be able to be safely discharged on her existing Pepcid and prednisone prescriptions she has already filled. Patient will be signed out to day physician for reevaluation and final disposition.. 07:00 Transition of care: Care assumed from Karla Foote MD. ms3 07:16 Differential Diagnosis Allergic reaction vs hereditary angioedema vs anaphylaxis. ms3 07:29 Consideration of Admission/Observation Escalation of care including ms3 admission/observation considered. Patient's symptoms have resolved.. I considered the following discharge prescriptions or medication management in the emergency department Medications were administered in the Emergency Department. See MAR. Counseling: I had a detailed discussion with the patient and/or guardian regarding: the historical points, exam findings, and any diagnostic results supporting the discharge/admit diagnosis, the need for outpatient follow up, to return to the emergency department if symptoms worsen or persist or if there are any questions or concerns that arise at home. ED course: Patient's symptoms resolving, patient is alert and oriented x4, in no apparent distress, nontoxic-appearing. Patient states she would like to be discharged at this time. All questions were answered. Patient to follow-up with her primary care physician in 2 to 3 days. Return precautions discussed include shortness of breath, vomiting, worsening symptoms, or any other concerns.. 08/31 06:26 Order name: IV Saline Lock; Complete Time: 06:45 sp3 Administered Medications: 06:40 Drug: Benadryl (diphenhydrAMINE) 25 mg Route: IVP; Site: left antecubital; aa9 07:00 Follow up: Response: No adverse reaction aa9 06:42 Drug: SOLU-Medrol (methylPrednisoLONE) 125 mg Route: IVP; Site: left antecubital; aa9 07:00 Follow up: Response: No adverse reaction aa9 06:44 Drug: Tylenol 650 mg Route: PO; aa9 06:59 Follow up: Response: No adverse reaction aa9 06:44 Drug: NS 0.9% 500 ml Route: IV; Rate: bolus; Site: left antecubital; aa9 07:22 Follow up: Response: No adverse reaction; IV Status: Completed infusion; IV Intake: kc6 500ml Disposition Summary: 08/31/22 07:32 Discharge Ordered Location: Home ms3 Condition: Stable ms3 Diagnosis - Allergic urticaria ms3 - Facial swelling ms3 Followup: ms3 - With: Private Physician - When: 2 - 3 days - Reason: Recheck today's complaints Discharge Instructions: - Discharge Summary Sheet ms3 - Allergies, Adult ms3 Forms: - Medication Reconciliation Form ms3 - Thank You Letter ms3 - Antibiotic Education ms3 - Prescription Opioid Use ms3 Signatures: Joby Goode DO DO ms3 Karla Foote MD MD sp3 Christine Ruiz, RN RN aa9 Ruchi Rae RN kc6 Corrections: (The following items were deleted from the chart) 07:00 Consideration of Admission/Observation Escalation of care including ms3 admission/observation considered. Patient's symptoms have resolved.. ms3 07:00 I considered the following discharge prescriptions or medication management in ms3 the emergency department Medications were administered in the Emergency Department. See MAR ms3 07:00 Counseling: I had a detailed discussion with the patient and/or guardian ms3 regarding: the historical points, exam findings, and any diagnostic results supporting the discharge/admit diagnosis, the need for outpatient follow up, to return to the emergency department if symptoms worsen or persist or if there are any questions or concerns that arise at home, ms3 07:00 ED course: Patient's symptoms resolving, patient is alert and oriented x4, in no ms3 apparent distress, nontoxic-appearing. Patient states she would like to be discharged at this time. All questions were answered. Patient to follow-up with her primary care physician in 2 to 3 days. Return precautions discussed include shortness of breath, vomiting, worsening symptoms, or any other concerns.. ms3
[2022-08-31 08:18] VITALS: TEMP 98.1
[2022-08-31 08:21] VITALS: BP 115/58; O2SAT 100
== END 2022-08-31 07:41 | disposition home or self-care (01) ==
LOC: ER 05:49
DX: L50.0 Allergic urticaria (principal); E11.9 Type 2 diabetes mellitus without complications; E03.9 Hypothyroidism, unspecified; I10 Essential (primary) hypertension; Z88.0 Allergy status to penicillin; Z88.1 Allergy status to other antibiotic agents
CPT/HCPCS: J1200; J7040; J2930

== ENCOUNTER 2022-09-02 06:40 | Observation (INO) | payer BC ==
--- OUTSIDE RECORDS SUMMARY | 2022-09-02 06:44 | XMS REPORT | Continuity of Care Document ---
:1960 Author Organization [facility] t Address [address] [place] [address] Care Team Providers Name Role Phone Karla Mir Primary Care Physician UNKNOWN, ATTENDING Attending Clinician Unavailable MARIO FOOTE Attending Clinician Unavailable Therapy, Pcp Covid Infusion Attending Clinician Unavailable Mario Foote MD Attending Clinician Braden RNFrancisca Attending Clinician Unavailable Only, Ang Db Test Attending Clinician Unavailable EbLawrence Jennings Attending Clinician LAWRENCE SANTA Attending Clinician Unavailable Doctor Unassigned, [place] Attending Clinician Unavailable Payers Payer Name Policy Type Policy Number Effective Date Expiration Date Joellen larsen [facility] [id number] 2019 00:00:00 [employer] II [id number] 2017 00:00:00 Problems Condition Condition Condition Status [...] Source Exposure to Yes University of SARS-CoV-2 [facility] (event) [place] Alcohol intake 2018-02-13 2018-02-13 University of 00:00:00 00:00:00 [facility] Tobacco use and 2014-04-06 2014-04-06 Never used Universit y of exposure 00:00:00 00:00:00 [facility] Tobacco Comment 2014-04-06 2014-04-06 quit 20 years Univer sity of 00:00:00 00:00:00 ago. [facility] Sex Assigned At [birth year] Universit y of 00:00:00 00:00:00 [facility] Smoking Status Start Date Stop Date Source Former smoker 2014-04-06 00:00:00 2014-04-06 00:00:00 Universi ty of [facility] Medications Ordered Filled Start Stop Current Ordering Indication Dosage Frequency Signature Comments Components Source Medication Medication Date Date Medication? Clinician (SIG) Name Name casirivimab 2020-07- No [id number] 1200mg Univers -imdevimab 04-05 ity of (REGEN-COV 15:30: 14:15 [place] (EUA)) 00 :00 Medical injection Branch 1,200 mg casirivimab 2020-07- No [id number] 1200mg 1,200 mg, Univers -imdevimab 04-05 Subcutaneo it y of (REGEN-COV 15:30: 14:15 [place], ONCE, [place]UA[place] 00 :00 1 dose, On Medical injection Sat Branch 1,200 mg 04/05/21 at 1030, Routine cephALEXin Yes [id number] 1 tab 2x/d Univers 500 mg 8-12 ity of tablet 00:00: [place] 00 Medical Branch metFORMIN 2013-07 Yes 1000mg Take 1,000 Univers (GLUCOPHAGE 0-03 mg by ity of ) 1,000 mg 13:08: mouth [place] tablet 11 (two) Medical times [place] daily with meals. levothyroxi 2013-07 Yes 75ug Take 75 Uni vers ne 0-03 mcg by ity of (SYNTHROID) 13:08: mouth [place] 75 mcg 10 every Medical tablet morning. Branch atenolol-ch 2013-07 Yes 1{tbl} Take 1 Tab Univers lorthalidon 0-03 by mouth ity of e 13:08: daily. [place] (TENORETIC) 10 Medical 50-25 mg Branch per tablet losartan 2013-07 Yes 50mg Take 50 mg Uni vers (COZAAR) 50 0-03 by mouth ity of mg tablet 13:08: daily. [address] triamcinolo 2013-07 Yes [id number] Apply to [facility] ne 0-03 area(s) 2 ity of acetonide 00:00: (two) [place] (TRIDERM) 00 times Medical 0.1 % cream daily. Branch Vital Signs Vital Name Observation Time Observation Value Comments Source Systolic blood 2021-04-05 14:40:00 98 mm[Hg] Univer sity of pressure [facility] Diastolic blood 2021-04-05 14:40:00 62 mm[Hg] Unive rsity of [facility] Heart rate 2021-04-05 14:40:00 61 /min [facility] Body temperature 2021-04-05 14:40:00 36.33 Angela [facility] Oxygen saturation in 2021-04-05 14:40:00 94 /min room air [facility] blood by [facility] Pulse oximetry [place] Body height 2021-04-05 14:04:00 160 cm [facility] Body weight 2021-04-05 14:04:00 95.255 kg [facility] BMI 2021-04-05 14:04:00 37.20 kg/m2 [facility] Procedures This patient has no known procedures. Encounters Start End Encounter Admission Attending Care Care Encounter Source Date/Time Date/Time Type Type Clinicians Facility Department ID 2021-04-11 2021-04-11 Outpatient R UNKNOWN, [facility] [id number] [facility] 10:15:00 10:15:00 ATTENDING itgabriela [facility] 2021-04-05 2021-04-05 Outpatient R RAMON [facility] [id number] Univers 10:00:00 10:00:00 MARIO burrell [facility] 2021-04-05 2021-04-05 Nurse Therapy, Pcp Covid Infusion [facility] [id number] Univers 08:56:13 09:56:13 Visit FooteMario saldivar A PRIMARY [id number] [id number] JULISSA [id number] [facility] 042 [place] 2021-04-02 2021-04-02 Telephone JED Feliciano [id number] Univers 00:00:00 00:00:00 Francisca PALMA [id number] it y of HOSPITAL [id number] [place] [id number] [facility] 019 [place] 2021-04-01 2021-04-01 Laboratory Only, Ang Db Test [facility] 1.2.8 [id number] Univers 13:30:59 13:45:17 Only [employer] [facility] [id number] ity of [place] [id number] [place] as Saroj?Blea [id number] [address] [facility] 2021-04-01 2021-04-01 Outpatient R KEN [facility] [id number] Univers 13:15:00 13:15:00 LAWRENCE burrell [facility] 2021-04-01 2021-04-01 Letter Doctor JED [id number] Univers 00:00:00 00:00:00 (Out) Unassigned, LOUIE [id number] ity of [place] [facility] [id number] [place] as [phone] [facility] 044 [place] 2021-04-01 2021-04-01 Orders Doctor ADKINS [id number] Univers 00:00:00 00:00:00 Only UnassignedLOUIE [id number] ity of [place] [facility] [id number] [place] as [id number] [facility] 009 Branch Results This patient has no known results.
[2022-09-02] MEDS ORDERED: MAGNES/ALUMIN/SIMET 30ML UCUP ONE (08:02)
[2022-09-02] MEDS ORDERED: METHYLPREDNISOLONE 125 MG INJ ONE (08:02)
[2022-09-02] MEDS ORDERED: FAMOTIDINE 20 MG/2 ML VIAL IV ONE (08:03)
[2022-09-02] MEDS ORDERED: DIPHENHYDRAMINE 50 MG/ML VIAL ONE (08:03)
[2022-09-02] MEDS ORDERED: NA CHLORIDE 0.9% 500 ML ONE (08:03)
[2022-09-02] MEDS ORDERED: predniSONE 20 MG TAB ONE (08:03)
[2022-09-02] MEDS ORDERED: LIDOCAINE VISCOUS 2% SOLN 15 ML UDC ONE (08:03)
[2022-09-02 08:34] LABS: Absolute Lymphocytes (CBC) 4.5 K/uL (0.7-4.9); Hematocrit 41.5 % (36.0-45.0); Lymphocytes % 19.3 % (15.3-44.8); MCV 90.6 fL (80-100); MPV 7.6 fL (7.6-11.3); RBC Red Blood Cell Count 4.58 M/uL (3.86-4.86)
--- NOTE | 2022-09-02 09:02 | EDPHYS ---
Physician Documentation [facility] Name: Kristin Medina Age: 62 yrs Sex: Female : 1960 Arrival Date: 09/02/2022 Time: 06:44 Bed 19 Private MD: ED Physician Arnulfo Samuel HPI: 09/02 08:33 This 62 yrs old Female presents to ER via Ambulatory with complaints of semaj Allergic Reaction. 08:33 The patient presents with difficulty swallowing. semaj Historical: - Allergies: 06:57 Bactrim; kd3 06:57 PENICILLINS; kd3 - PMHx: 06:57 Anxiety; Hypertensive disorder; diabetes mellitus; Hypothyroidism; kd3 - PSHx: 06:57 Hernia sx; section; Cholecystectomy; Tonsillectomy; kd3 - Immunization history:: Adult Immunizations up to date. - Social history:: Smoking status: unknown. ROS: 08:34 Constitutional: Negative for fever, chills, and weight loss, Eyes: Negative for injury, semaj pain, redness, and discharge, ENT: Negative for injury, pain, and discharge, Neck: Negative for injury, pain, and swelling, Respiratory: Negative for shortness of breath, cough, wheezing, and pleuritic chest pain, Abdomen/GI: Negative for abdominal pain, nausea, vomiting, diarrhea, and constipation, Back: Negative for injury and pain, : Negative for injury, bleeding, discharge, and swelling, MS/Extremity: Negative for injury and deformity, Neuro: Negative for headache, weakness, numbness, tingling, and seizure, Psych: Negative for depression, anxiety, suicide ideation, homicidal ideation, and hallucinations, Allergy/Immunology: Negative for hives, rash, and allergies, Endocrine: Negative for neck swelling, polydipsia, polyuria, polyphagia, and marked weight changes, Hematologic/Lymphatic: Negative for swollen nodes, abnormal bleeding, and unusual bruising. 08:34 Cardiovascular: Positive for chest pain, of the chest. 08:34 Respiratory: Negative for cough, dyspnea on exertion, hemoptysis, orthopnea, pleurisy, shortness of breath, sputum production, wheezing, acute changes. 08:34 Abdomen/GI: Positive for difficulty swallowing. 08:34 MS/extremity: Negative for decreased range of motion, pain, swelling, tenderness. Exam: 08:34 Constitutional: This is a well developed, well nourished patient who is awake, alert, semaj and in no acute distress. Head/Face: Normocephalic, atraumatic. Eyes: Pupils equal round and reactive to light, extra-ocular motions intact. Lids and lashes normal. Conjunctiva and sclera are non-icteric and not injected. Cornea within normal limits. Periorbital areas with no swelling, redness, or edema. ENT: Nares patent. No nasal discharge, no septal abnormalities noted. Tympanic membranes are normal and external auditory canals are clear. Oropharynx with no redness, swelling, or masses, exudates, or evidence of obstruction, uvula midline. Mucous membranes moist. Neck: Trachea midline, no thyromegaly or masses palpated, and no cervical lymphadenopathy. Supple, full range of motion without nuchal rigidity, or vertebral point tenderness. No Meningismus. Chest/axilla: Normal chest wall appearance and motion. Nontender with no deformity. No lesions are appreciated. Cardiovascular: Regular rate and rhythm with a normal S1 and S2. No gallops, murmurs, or rubs. Normal PMI, no JVD. No pulse deficits. Respiratory: Lungs have equal breath sounds bilaterally, clear to auscultation and percussion. No rales, rhonchi or wheezes noted. No increased work of breathing, no retractions or nasal flaring. Abdomen/GI: Soft, non-tender, with normal bowel sounds. No distension or tympany. No guarding or rebound. No evidence of tenderness throughout. Back: No spinal tenderness. No costovertebral tenderness. Full range of motion. Female : Normal external genitalia. MS/ Extremity: Pulses equal, no cyanosis. Neurovascular intact. Full, normal range of motion. Neuro: Awake and alert, GCS 15, oriented to person, place, time, and situation. Cranial nerves II-XII grossly intact. Motor strength 5/5 in all extremities. Sensory grossly intact. Cerebellar exam normal. Normal gait. Psych: Awake, alert, with orientation to person, place and time. Behavior, mood, and affect are within normal limits. 08:34 Skin: Appearance: Color: normal in color, Temperature: normal temperature, Moisture: normal moisture, petechiae, not noted, ecchymosis, not noted, flushing, swelling, is not appreciated, rash can be described as erythematous, urticarial. 09:22 ECG was reviewed by the Attending Physician. [facility] Vital Signs: 06:55 BP 132 / 76; Pulse 87; Resp 19; Temp 98.3(O); Pulse Ox 97% on R/A; Weight 89.36 kg; kd3 Height 5 ft. 3 in. (160.02 cm); Pain 0/10; 09:13 BP 114 / 76; Pulse 85; Pulse Ox 98% on R/A; ap3 06:55 Body Mass Index 34.90 (89.36 kg, 160.02 cm) kd3 MDM: 06:58 Patient medically screened. [facility] 08:36 Differential diagnosis: anaphylaxis, angioedema, abnormal EKG, acute myocardial semaj infarction, acute pericarditis, anxiety, chest wall pain, Cholelithiasis gastroesophageal reflux disease (GERD), hiatal hernia, pancreatitis, pleurisy, pneumonia, pulmonary embolus, stable angina, unstable angina, foreign body or airway obstruction Myocardial Ischemia Vasovagal Reactions. HEART Score: History: Slightly Suspicious (0), ECG: Normal (0), Age: > 45 and < 65 years (1), Risk Factors: > or = 3 Risk factors for atherosclerotic disease (2), [Hypercholesterolemia] [Hypertension] [DM] [+ Family HX] [Obesity] Troponin: < or = 1 x Normal Limit (0), Total Score = 3. The patient was not given aspirin in the Emergency Department. Not indicated due to patient's past medical history. PK Risk Score: 1 - Three or more CAD risk factors, TOTAL SCORE = 1. Data reviewed: vital signs, nurses notes, lab test result(s), EKG, radiologic studies, plain films. Consideration of Admission/Observation Escalation of care including admission/observation considered. I considered the following discharge prescriptions or medication management in the emergency department Medications were administered in the Emergency Department. See MAR. Test considered but Not performed: CT: ct ro pe. 09/02 07:18 Order name: CBC with Diff [facility] 09/02 07:18 Order name: Comprehensive Metabolic Panel; Complete Time: 09:35 [facility] 09/02 07:25 Order name: EKG; Complete Time: 07:25 [facility] 09/02 07:25 Order name: EKG - Nurse/Tech; Complete Time: 09:15 [facility] 09/02 07:25 Order name: Troponin High Sensitivity; Complete Time: 09:24 [facility] 09/02 07:25 Order name: Lipase; Complete Time: 09:24 [facility] 09/02 07:25 Order name: Urine Dipstick-Ancillary (obtain specimen); Complete Time: 10:25 [facility] 09/02 08:46 Order name: CBC with Automated Diff; Complete Time: 12:08 EDMS 09/02 08:59 Order name: Blood Culture Adult (2) [facility] 09/02 08:59 Order name: Lactate w/ 2H reflex if indic.; Complete Time: 10:56 [facility] 09/02 08:59 Order name: Chest Pa And Lat (2 Views) XRAY; Complete Time: 10:56 [facility] 09/02 08:59 Order name: COVID-19/FLU A+B; Complete Time: 10:56 [facility] 09/02 08:59 Order name: Urine Culture [facility] 09/02 09:09 Order name: Manual Differential; Complete Time: 12:08 EDMS 09/02 09:35 Order name: CT Chest, Abdomen, Pelvis - W/Contrast; Complete Time: 10:56 [facility] 09/02 10:05 Order name: Misc. Order: UA PLEASE; Complete Time: 10:24 [facility] 09/02 10:25 Order name: Urine Dipstick-Ancillary; Complete Time: 10:56 EDMS 09/02 11:20 Order name: Diet Ada 1800 Jeffry; Complete Time: 11:21 ph EC: Rate is 86 beats/min. Rhythm is regular. QRS [place] is Normal. CA interval is normal. QRS semaj interval is normal. QT interval is normal. No Q waves. T waves are Normal. No ST changes noted. Clinical impression: NSR w/ Non-specific ST/T Changes and No evidence of ischemia. Interpreted by me. Reviewed by me. Administered Medications: 08:25 Drug: Benadryl (diphenhydrAMINE) 50 mg Route: IVP; Site: left antecubital; ap3 11:44 Follow up: Response: No adverse reaction ap3 08:25 Drug: Pepcid (famotidine) 40 mg Route: IVP; Site: left antecubital; ap3 11:45 Follow up: Response: No adverse reaction ap3 08:25 Drug: SOLU-Medrol (methylPrednisoLONE) 125 mg Route: IVP; Site: left antecubital; ap3 11:45 Follow up: Response: No adverse reaction ap3 08:25 Drug: predniSONE 60 mg Route: PO; ap3 11:45 Follow up: Response: No adverse reaction ap3 08:25 Drug: GI Cocktail without - (Maalox Suspension 30 ml, Lidocaine Liquid 2 % 15 ap3 ml) Route: PO; 11:44 Follow up: Response: No adverse reaction ap3 08:26 Drug: NS 0.9% 500 ml Route: IV; Rate: bolus; Site: left antecubital; ap3 10:25 Follow up: IV Status: Completed infusion; IV Intake: 500ml ap3 09:13 Drug: NS 0.9% 500 ml Route: IV; Rate: bolus; Site: left antecubital; ap3 11:44 Follow up: IV Status: Completed infusion; IV Intake: 500ml ap3 10:25 Drug: Potassium Effervescent Tablet 50 mEq Route: PO; ap3 11:44 Follow up: Response: No adverse reaction ap3 10:45 Drug: NS 0.9% 1000 ml Route: IV; Rate: 125 ml/hr; Site: left antecubital; ap3 14:42 Follow up: IV Status: Infusion continued upon admission ap3 11:44 Drug: Rocephin (cefTRIAXone) 1 grams Route: IV; Rate: per protocol; Site: left ap3 antecubital; 12:42 Follow up: IV Status: Completed infusion ap3 Disposition Summary: 09/02/22 11:02 Hospitalization Ordered Hospitalization Status: Observation semaj [facility]09/02/22 11:02) semaj Condition: Stable(09/02/22 11:02) semaj Problem: new(09/02/22 11:02) semaj Symptoms: have improved(09/02/22 11:02) semaj Bed/Room Type: Standard semaj Provider: Hudson Fernandez(09/02/22 12:08) semaj Room Assignment: 219(09/02/22 13:32) bd Diagnosis - Rash and other nonspecific skin eruption(09/02/22 11:02) semaj - Elevated white blood cell count semaj - Hypokalemia semaj - Sepsis, unspecified organism semaj - Dysphagia semaj - Chest pain, unspecified - ATYPICAL semaj Discharge Instructions: - Discharge Summary Sheet semaj - Potassium Content of Foods semaj - Hives semaj - Rash, Adult semaj - Hives, [id number] semaj - Hypokalemia semaj - Leukocytosis semaj Forms: - Medication Reconciliation Form semaj - SBAR form semaj - Family Work Release ph Prescriptions: - Benadryl 25 mg Oral Capsule - take 1 capsule by ORAL route every 6 hours As needed; 30 tablet; Refills: 0, semaj Product Selection Permitted - Pepcid 20 mg Oral Tablet - take 1 tablet by ORAL route every 12 hours for 15 days; 30 tablet; Refills: 0, semaj Product Selection Permitted - Potassium Chloride 20 meq Oral Packet - take 1 packet by ORAL route every 12 hours 1 packet in 6 (six) ounces of water semaj or juice; Take after meal; 14 packet; Refills: 0, Product Selection Permitted - Prednisone 20 mg Oral Tablet - take 2 tablets by ORAL route once daily for 5 days; 10 tablet; Refills: 0, semaj Product Selection Permitted Signatures: Dispatcher [employer] EDMS Ivon Payan Corey, MD MD cha Prokisch, Amanda RN RN ap3 Lisa Limon RN RN kd3 Corrections: (The following items were deleted from the chart) 09:02 09:02 Home [facility] semaj 09:02 09:02 new [facility] 09:02 09:02 have improved [facility] 09:02 09:02 Stable [facility] 09:02 09:02 Urticaria, unspecified [facility] 09:02 09:02 Rash and other nonspecific skin eruption [facility] 09:02 09:02 Dysphagia, unspecified [facility] 09:22 09:21 Home [facility] 09:22 09:21 new [facility] 09:22 09:21 have improved [facility] 09:22 09:21 Stable [facility] 09:22 09:21 Urticaria, unspecified [facility] 09:22 09:21 Rash and other nonspecific skin eruption [facility] semaj 09:22 09:21 Dysphagia, unspecified semaj semaj 12:08 11:02 Hossein Villarreal semaj semaj 13:32 11:02 semaj harvey
--- NOTE | 2022-09-02 09:02 | ER ---
Nurse's Notes [facility] Name: Kristin Medina Age: 62 yrs Sex: Female : 1960 Arrival Date: 09/02/2022 Time: 06:44 Bed 19 Private MD: Diagnosis: Rash and other nonspecific skin eruption;Elevated white blood cell count;Hypokalemia;Sepsis, unspecified organism;Dysphagia;Chest pain, unspecified-ATYPICAL Presentation: 09/02 06:55 Chief complaint: Patient states: I had an allergic reaction to Bactrim and i had kd3 stopped taking it last . The hives just keep coming back. I already been to my regular doctor who thinks i may just need another round of prednisone. But yall need to fix me because i am tired of this. Coronavirus screen: Vaccine status: Patient reports being unvaccinated. Ebola Screen: No symptoms or risks identified at this time. Onset: The symptoms/episode began/occurred gradually. Risk Assessment: Do you want to hurt yourself or someone else? Patient reports no desire to harm self or others. Onset of symptoms was September 02, 2022. 06:55 Method Of Arrival: Ambulatory kd3 06:55 Acuity: CANDELARIA 3 kd3 08:24 Anaphylaxis evaluation, no signs or symptoms of anaphylaxis were noted. Initial Sepsis ap3 Screen: Does the patient meet any 2 criteria? No. Patient's initial sepsis screen is negative. Does the patient have a suspected source of infection? No. Patient's initial sepsis screen is negative. Triage Assessment: 06:57 General: Appears uncomfortable, Behavior is calm, cooperative. Pain: Denies pain. kd3 Historical: - Allergies: 06:57 Bactrim; kd3 06:57 PENICILLINS; kd3 - PMHx: 06:57 Anxiety; Hypertensive disorder; diabetes mellitus; Hypothyroidism; kd3 - PSHx: 06:57 Hernia sx; section; Cholecystectomy; Tonsillectomy; kd3 - Immunization history:: Adult Immunizations up to date. - Social history:: Smoking status: unknown. Screenin:23 [facility] ED Fall Risk Assessment (Adult) History of falling in the last 3 months, ap3 including since admission No falls in past 3 months (0 pts). Abuse screen: Denies threats or abuse. Nutritional screening: No deficits noted. Tuberculosis screening: No symptoms or risk factors identified. Assessment: 08:24 General: Appears uncomfortable. Pain: Complains of pain in forehead, right ear and ap3 right confucianism. Neuro: Level of Consciousness is awake, alert, obeys commands, Oriented to person, place, time, situation. Cardiovascular: Patient's skin is warm and dry. Respiratory: Airway is patent Respiratory effort is even, unlabored, Breath sounds are clear. Derm: Rash noted that is itchy, on forehead, right ear and right confucianism. 09:20 Reassessment: 0920-lab paged to come assist in blood cultures. ap3 13:43 Reassessment: nurse attempted to call report to the receiving nurse. nurse was informed ap3 the receiving nurse would have to call me back because the patient has not been assigned to a nurse yet. 14:42 Reassessment: report given to receiving nurse. ap3 Vital Signs: 06:55 BP 132 / 76; Pulse 87; Resp 19; Temp 98.3(O); Pulse Ox 97% on R/A; Weight 89.36 kg; kd3 Height 5 ft. 3 in. (160.02 cm); Pain 0/10; 09:13 BP 114 / 76; Pulse 85; Pulse Ox 98% on R/A; ap3 06:55 Body Mass Index 34.90 (89.36 kg, 160.02 cm) kd3 ED Course: 06:44 Patient arrived in ED. ja2 06:57 Triage completed. kd3 06:57 Arnulfo Samuel MD is Attending Physician. [facility] 06:57 Arm band placed on right wrist. kd3 08:23 Ro Roberson, ASHLEY is Primary Nurse. ap3 08:25 No provider procedures requiring assistance completed. Inserted saline lock: 20 gauge ap3 in left antecubital area, using aseptic technique. Blood collected. 08:26 Patient has correct armband on for positive identification. Bed in low position. Call ap3 light in reach. Side rails up X 1. Adult w/ patient. Pulse ox on. NIBP on. Door closed. Noise minimized. 09:02 Aneesh Azar MD is Referral Physician. semaj 09:21 Aneesh Azar MD is Referral Physician. semaj 09:25 Chest Pa And Lat (2 Views) XRAY In Process Unspecified. EDMS 10:08 CT Chest, Abdomen, Pelvis - W/Contrast In Process Unspecified. EDMS 10:58 Hossein Villarreal MD is Hospitalizing Provider. semaj 12:08 Hudson Fernandez MD is Hospitalizing Provider. semaj 13:44 Patient admitted, IV remains in place. ap3 Administered Medications: 08:25 Drug: Benadryl (diphenhydrAMINE) 50 mg Route: IVP; Site: left antecubital; ap3 11:44 Follow up: Response: No adverse reaction ap3 08:25 Drug: Pepcid (famotidine) 40 mg Route: IVP; Site: left antecubital; ap3 11:45 Follow up: Response: No adverse reaction ap3 08:25 Drug: SOLU-Medrol (methylPrednisoLONE) 125 mg Route: IVP; Site: left antecubital; ap3 11:45 Follow up: Response: No adverse reaction ap3 08:25 Drug: predniSONE 60 mg Route: PO; ap3 11:45 Follow up: Response: No adverse reaction ap3 08:25 Drug: GI Cocktail without - (Maalox Suspension 30 ml, Lidocaine Liquid 2 % 15 ap3 ml) Route: PO; 11:44 Follow up: Response: No adverse reaction ap3 08:26 Drug: NS 0.9% 500 ml Route: IV; Rate: bolus; Site: left antecubital; ap3 10:25 Follow up: IV Status: Completed infusion; IV Intake: 500ml ap3 09:13 Drug: NS 0.9% 500 ml Route: IV; Rate: bolus; Site: left antecubital; ap3 11:44 Follow up: IV Status: Completed infusion; IV Intake: 500ml ap3 10:25 Drug: Potassium Effervescent Tablet 50 mEq Route: PO; ap3 11:44 Follow up: Response: No adverse reaction ap3 10:45 Drug: NS 0.9% 1000 ml Route: IV; Rate: 125 ml/hr; Site: left antecubital; ap3 14:42 Follow up: IV Status: Infusion continued upon admission ap3 11:44 Drug: Rocephin (cefTRIAXone) 1 grams Route: IV; Rate: per protocol; Site: left ap3 antecubital; 12:42 Follow up: IV Status: Completed infusion ap3 Medication: 13:44 VIS not applicable for this client. ap3 Intake: 10:25 IV: 500ml; Total: 500ml. ap3 11:44 IV: 500ml; Total: 1000ml. ap3 Outcome: 09:02 Discharge ordered by . semaj 09:21 Discharge ordered by . semaj 11:02 Decision to Hospitalize by Provider. semaj 13:44 Condition: good ap3 13:44 Instructed on the need for admit. 14:55 Admitted to Med/surg accompanied by tech, via wheelchair, room 219, with chart. ap3 14:56 Patient left the ED. ap3 Signatures: Dispatcher [employer] EDVT Arnulfo Samuel MD MD cha Prokisch, Amanda RN RN ap3 Francine Godwin Kyli RN RN kd3 Corrections: (The following items were deleted from the chart) 11:34 11:33 Rocephin (cefTRIAXone) 1 grams IV at per protocol in left antecubital ap3 ap3
[2022-09-02] MEDS ORDERED: NA CHLORIDE 0.9% 1,000 ML ONE (09:06)
[2022-09-02 09:15] LABS: Troponin High Sensitivity 3.4 pg/mL (<58.9)
[2022-09-02 09:17] LABS: Albumin 3.5 g/dL (3.4-5.0); Bilirubin Total 0.9 mg/dL (0.2-1.0)
[2022-09-02 09:33] LABS: Potassium 2.9 mmol/L (3.5-5.1)
--- NOTE | 2022-09-02 09:41 | RAD REPORT ---
EXAM DESCRIPTION: Trudy Long And Lat (2 Views)09/02/2022 9:23 am CLINICAL HISTORY: Cough COMPARISON: None FINDINGS: Many bilateral calcified pulmonary nodules are present. Heart is borderline enlarged IMPRESSION: Many bilateral calcified pulmonary nodules. Most likely these are secondary to prior gra nulomatous infection. Follow-up chest film in 3 months recommended to assess stability.
--- NOTE | 2022-09-02 10:19 | RAD REPORT ---
EXAM DESCRIPTION: CT - Chest Abdomen Pelvis W Cont - 09/02/2022 9:59 am CLINICAL HISTORY: Cough and abdominal pain COMPARISON: none TECHNIQUE: Computed axial tomography of the chest, abdomen and pelvis was obtained. 100 cc Isovue-30 0 was administered intravenously. Oral contrast was not requested. This limits evaluation of bowel. All CT scans are performed using dose optimization technique as appropriate and may include automated exposure control or mA/KV adjustment according to patient size. FINDINGS: Multiple, bilateral calcified pulmonary nodules. Calcified mediastinal and calcified hilar lymph nodes No pleural effusion. No pericardial effusion. Mild fatty liver. Hepatic and splenic granulomata. Pancreas, adrenals and kidneys are unremarkable. Cholecystectomy Ventral hernia repair No evidence of diverticulitis No adnexal mass IMPRESSION: Calcified pulmonary nodules, hepatic and splenic granulomata are likely the sequela of p rior granulomatous infection Mild fatty liver
[2022-09-02 10:25] LABS: Urine Blood Trace-intact (Negative); Urine Glucose Negative (Negative); Urine Protein Negative (Negative); Urine pH 5.5 (5.0-7.0)
[2022-09-02 10:39] LABS: SARS-COV-2 RT PCR NEGATIVE (NEGATIVE)
--- NOTE | 2022-09-02 11:14 | EKG ---
Test Date: 2022-09-02 Test Time: 09:10:54 Unit Technician: ALP MEASUREMENT RESULTS: Intervals: Rate: 86 DC: 190 QRSD: 86 QT: 360 QTc: 430 [place]: P: 47 DC: 190 QRS: 3 T: 21 INTERPRETIVE STATEMENTS: Normal sinus rhythm Low voltage QRS Cannot rule out Anterior infarct, age undetermined Abnormal ECG Compared to ECG 04/20/2016 08:34:53 Myocardial infarct finding now present Electronically Signed On 09-02-22 11:13:21 PRODUCTION INTERN by Jamal Monzon
[2022-09-02 11:19] LABS: Blood Morphology Comment NOT SEEN (NOT SEEN); Platelet Estimate ADEQ
--- NOTE | 2022-09-02 12:04 | P.HP ---
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 Adverse Reaction (Uncoded 10/05/18 12:34) swelling Home Medications: Aspirin [Aspirin EC 81 MG] 81 mg PO DAILY 10/07/15 Atorvastatin Calcium [Lipitor*] 10 mg PO BEDTIME 10/07/15 Levothyroxine [Synthroid*] 75 mcg PO [id number] 10/07/15 Metformin HCl [Glucophage] 1,000 mg PO BID 10/07/15 Cyanocobalamin [Vitamin B-12*] 1,000 mcg PO BID 04/29/16 Atenolol/Chlorthalidone [Atenolol-Chlorthalidone 50-25] 1 each PO ATQFT1CM 10/05/18 Physical Examination - Studies Laboratory Data (last 24 hrs) 09/02/22 08:13: Lipase 40 09/02/22 08:13: Sodium 138, Potassium 2.9 L*, BUN 29 H, Creatinine 1.01, Glucose 156 H, Total Bilirubin 0.9, AST 12 L, ALT 17, Alkaline Phosphatase 73 09/02/22 08:13: WBC 23.20 H*, Hgb 14.0, Hct 41.5, Plt Count 392 Assessment and Plan - Plan T - Advance Directives Does patient have a Living Will: No Does patient have a Durable POA for Healthcare: No
[2022-09-02] MEDS ORDERED: ACETAMINOPHEN 500 MG TAB PO PRN (15:16)
[2022-09-02] MEDS ORDERED: DIPHENHYDRAMINE 50 MG/ML VIAL IV PRN (15:16)
[2022-09-02] MEDS ORDERED: ONDANSETRON 4 MG/2 ML VIAL IV PRN (15:16)
[2022-09-02] MEDS ORDERED: MORPHINE 2 MG/ML SYR IV PRN (15:16)
[2022-09-02] MEDS ORDERED: BENZONATATE 100 MG CAP PO ONE (15:48)
[2022-09-02 16:04] VITALS: BMI 34.9
[2022-09-02] MEDS: NS KCL 20MEQ 20 MEQ/1,000 ML BAG IV SCH (16:40)
[2022-09-02] MEDS ORDERED: METHYLPREDNISOLONE 40 MG INJ IV SCH (18:00)
--- NOTE | 2022-09-02 21:31 | P.HP ---
Certification for Inpatient Patient admitted to: Inpatient With expected LOS: >2 Midnights Practitioner: I am a practitioner with admitting privileges, knowledge of patient current condition, hospital course, and medical plan of care. Services: Services provided to patient in accordance with Admission requirements found in Title 42 Section 412.3 of the Code of Federal Regulations Patient History Date of Service: 09/02/22 Reason for admission: DYSPHAGIA, WEAK History of Present Illness: ANGELA HAD L KNEE SWELLING AND PAIN FOR WHICH SHE GOT BACTRIM AND DOXYCYCLIN FROM ER. CELLULTIS IMPROVED BUT SHE DEVELOPED RASH FROM BACTRIM. SHE WAS GIVEN STEROIDS FROM ER SHE WENT TO ER AGAIN FOR RASH. SHE COMES TODAY WITH DYSPHAGIA AFTER MEAT PRODUCT AND HAD WBC COUNT OF 23K WITH LOW K AND HIGH LACTIC ACID. 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 Adverse Reaction (Uncoded 10/05/18 12:34) swelling Home medications list reviewed: Yes Home Medications: Aspirin [Aspirin EC 81 MG] 81 mg PO DAILY 10/07/15 Atorvastatin Calcium [Lipitor*] 10 mg PO BEDTIME 10/07/15 Levothyroxine [Synthroid*] 75 mcg PO [id number] 10/07/15 Metformin HCl [Glucophage] 1,000 mg PO BID 10/07/15 Cyanocobalamin [Vitamin B-12*] 1,000 mcg PO BID 04/29/16 Atenolol/Chlorthalidone [Atenolol-Chlorthalidone 50-25] 1 each PO [id number] 10/05/18 Gabapentin 1 tab PO BID 09/02/22 Losartan Potassium 1 tab PO DAILY 09/02/22 Semaglutide [Ozempic] 0.5 mg SQ ONCE 09/02/22 - Past Medical/Surgical History Has patient received pneumonia vaccine in the past: No -: Anxiety -: HTN -: Hypothyroidism -: Neuropathy -: DM -: Tumor removed on left foot -: C- sections -: Hernia repaired -: Cholectomy -: rectal absessed -: Tonsilectomy - Social History Smoking Status: Former smoker Alcohol use: No Caffeine use: Yes Review of Systems 10-point ROS is otherwise unremarkable General: Weakness ENT: As per HPI Gastrointestinal: As per HPI Physical Examination - Vital Signs Temperature: 97.3 F Blood Pressure: 113/72 Pulse: 97 Respirations: 16 Pulse Ox (%): 95 - Physical Exam General: Oriented x3, Mild distress HEENT: Atraumatic, PERRLA, Mucous membr. moist/pink, EOMI, Sclerae nonicteric Neck: Supple, 2+ carotid pulse no bruit, No LAD, Without JVD or thyroid abnormality Respiratory: Clear to auscultation bilaterally, Normal air movement Cardiovascular: Regular rate/rhythm, Normal S1 S2 Gastrointestinal: Normal bowel sounds, No tenderness Musculoskeletal: No tenderness Integumentary: No rashes Neurological: Normal gait, Normal speech, Normal strength at 5/5 x4 extr, Normal tone, Normal affect Lymphatics: No axilla or inguinal lymphadenopathy - Studies Laboratory Data (last 24 hrs) 09/02/22 08:13: Lipase 40 09/02/22 08:13: Sodium 138, Potassium 2.9 L*, BUN 29 H, Creatinine 1.01, Glucose 156 H, Total Bilirubin 0.9, AST 12 L, ALT 17, Alkaline Phosphatase 73 09/02/22 08:13: WBC 23.20 H*, Hgb 14.0, Hct 41.5, Plt Count 392 Assessment and Plan - Problems (Diagnosis) (1) Dysphagia Current Visit: Yes Status: Acute Plan: I TALKED TO DR. PEREZ HE WILL DO BARIUM TEST IN AM IF SHE HAS MICROPERFORATION SHE MAY HAVE THIS SYMPTOMS. C CT OF CHEST IS NEGATIVE START IMPERICAL ANTIBIOTICS. (2) Leukocytosis Current Visit: Yes Status: Acute Plan: MAY BE FROM STEROIDS OR INFECTION/PERFORATION. (3) Elevated lactic acid level Current Visit: Yes Status: Acute Plan: SHE LOOKS WELL CLINICALLY SHE MAY HAVE CONTAINED PERFORATION. WILL KEEP HER NPO. (4) Hypokalemia Current Visit: Yes Status: Acute (5) Allergy to sulfa drugs Current Visit: Yes Status: Acute Plan: MILD FAINT RASH IS STILL THERE. - Advance Directives Does patient have a Living Will: No Does patient have a Durable POA for Healthcare: No
[2022-09-02] MEDS: FAMOTIDINE 20 MG/2 ML VIAL IV SCH (22:18)
[2022-09-02] MEDS: CEFTRIAXONE 1,000 MG in NA CHLORIDE 0.9% 50 ML IVPB SCH (22:18)
[2022-09-03] MEDS: NS KCL 20MEQ 20 MEQ/1,000 ML BAG IV SCH (02:10)
[2022-09-03 03:32] LABS: Absolute Lymphocytes (CBC) 2.9 K/uL (0.7-4.9); Hematocrit 34.3 % (36.0-45.0); Lymphocytes % 20.9 % (15.3-44.8); MCV 90.1 fL (80-100); MPV 7.4 fL (7.6-11.3); RBC Red Blood Cell Count 3.81 M/uL (3.86-4.86)
[2022-09-03 03:39] LABS: Potassium 3.4 mmol/L (3.5-5.1)
[2022-09-03] MEDS ORDERED: LEVOTHYROXINE SOD 0.075 MG TAB PO SCH (06:00)
[2022-09-03] MEDS: CEFTRIAXONE 1,000 MG in NA CHLORIDE 0.9% 50 ML IVPB SCH (08:49)
[2022-09-03] MEDS: FAMOTIDINE 20 MG/2 ML VIAL IV SCH (08:49)
[2022-09-03] MEDS: CYANOCOBALAMIN 1,000 MCG TAB PO SCH ×2 (08:59→11:58)
[2022-09-03] MEDS: GABAPENTIN 300 MG CAP PO SCH ×2 (08:59→11:58)
[2022-09-03] MEDS: METFORMIN HCL 500 MG TAB PO SCH ×2 (08:59→11:58)
[2022-09-03] MEDS ORDERED: LOSARTAN POTASSIUM 50 MG TABLET PO SCH (09:00)
[2022-09-03] MEDS ORDERED: ASPIRIN EC 81 MG TAB PO SCH (09:00)
[2022-09-03 09:20] VITALS: O2SAT 99
--- NOTE | 2022-09-03 11:13 | RAD REPORT ---
EXAM DESCRIPTION: RAD - Esophagram Only - 09/03/2022 10:56 am CLINICAL HISTORY: difficulty swallowing COMPARISON: Chest Abdomen Pelvis W Cont dated 09/02/2022 FINDINGS: Esophagram performed to evaluate for possible esophageal perforation. On the check writer salesperson view, m ultiple calcified pulmonary nodules noted. The first, rapid sequence imaging was obtained after swell ing a water-soluble contrast. No extraluminal contrast was seen on a the AP or oblique view. Barium w as administered. No evidence of a perforation or leak identified on AP or oblique. No filling defects identified within the esophagus. Diffuse mucosal irregularity of the mid and distal esophagus could reflect esophagitis. Total fluoroscopy time: 22 second Number of images acquired: 7 IMPRESSION: No evidence of esophageal perforation. Suspect esophagitis. Endoscopy could confirm.
[2022-09-03 12:35] VITALS: BP 123/65; TEMP 97.3
[2022-09-03] MEDS ORDERED: ATORVASTATIN 10 MG TAB PO SCH (21:00)
[2022-09-06] MEDS ORDERED: HOME MED 1 EA UNK (Semaglutide [Ozempic] 0.25 MG/0.2 ML Pen.Injctr) SQ SCH (09:00)
== END 2022-09-03 12:00 | disposition home or self-care (01) ==
LOC: ER 06:40 → ERHOLD 12:16 → 2ND 14:45
PROVIDERS: ADMIT Internal Medicine; ATTEND Internal Medicine
DX: R13.10 Dysphagia, unspecified (principal); R53.1 Weakness; D72.829 Elevated white blood cell count, unspecified; E87.6 Hypokalemia; R74.02 Elevation of levels of lactic acid dehydrogenase [LDH]; R21 Rash and other nonspecific skin eruption; Z87.891 Personal history of nicotine dependence; Z88.2 Allergy status to sulfonamides; Z88.0 Allergy status to penicillin; Z20.822 Contact with and (suspected) exposure to COVID-19
CPT/HCPCS: 96365; 96361; 93005; 87040 ×3; 87088; 85025 ×2; 87086; 80048; 36415; 87205; 84132; 83605 ×2; 81003; 84484; 83690; 80053; 0240U; 71260; 74177; 74220; 71046; 96375; 99285; Q9967; J1200; J7512; J7040; J7030; J2930; J2920; J3480 ×2; G0378 ×4